=== PATIENT | male | born 1955 | race Caucasian/White ===

== ENCOUNTER 2017-02-13 18:36 | Inpatient (IN) | payer OTHER, MEDICARE ==
[~2017-02-13] VITALS: Ht 177.8 cm; Wt 89.9 kg
[2017-02-13] VITALS (7 sets, daily range): BP systolic 173–221; BP diastolic 97–158; PULSE 92–107; RESP 16–22; TEMP 97.9–98.6; O2SAT 93–100
[~2017-02-13 18:36] MED LIST: CYAN1000P IM; LEVO75TA42 PO; OXYC-360 PO; PRED10 PO; SPIRCAP INH; TEST-25 IM; VITA100T15 PO
[2017-02-13] MEDS ORDERED: LEVO75TA3 PO (19:07)
[2017-02-13] MEDS ORDERED: CARV3.12 PO (19:07)
[2017-02-13] MEDS ORDERED: MYCO500T PO (19:07)
[2017-02-13] MEDS ORDERED: LOVA20TA PO (19:07)
[2017-02-13] MEDS ORDERED: MAGN200T9 (19:07)
[2017-02-13] MEDS ORDERED: SODIUM CHLOR 0.9% 1000 ML INJ 1,000 ML IV SCH (19:11)
--- NOTE | 2017-02-13 19:13 | PD ---
HPI Chief Complaint: Abdominal Pain Time Seen by Provider: 19:03 Travel History International Travel<30 days: No Contact w/Intl Traveler<30days: No Traveled to known affect area: No History of Present Illness HPI 61-year-old male with history of bilateral lung transplant 7 years ago, presents emergency department for evaluation of acute onset epigastric pain that began 18 hours ago. It was a mild discomfort initially. It comes and goes in waves. It has developed into a severely sharp stabbing pain. Patient has associated nausea without vomiting. The pain does not radiate anywhere. Patient denies any fever or chills. Bowel movements have been normal. Denies any urinary symptoms. Patient has had no abdominal surgeries. He has no other symptoms to report. PFSH Past Medical History Cancer: No Cardiovascular Problems: No Diabetes: No Glaucoma: No Hepatitis: No Hiatal Hernia: No Hypertension: No Medical other: No Respiratory: Yes (NOT SURE OF CURRENT CAUSE OF LUNG PROBLEMS) Thyroid Disease: Yes Past Surgical History Oral Surgery: Yes (TONSILS) Tonsillectomy: Yes Other Surgery: Yes (BACK SURGERY) Family History Family Myocardial Infarction: Yes (FATHER AT AGE 53) Social History Alcohol Use: No Tobacco Use: No (1999) Substance Use: No Allergies-Medications (Allergen,Severity, Reaction): Coded Allergies: Sulfa (Sulfonamide Antibiotics) (Unverified Allergy, Severe, "JAUNDICE", ) fluticasone (Unverified Allergy, Severe, BLISTERS AND RASH, 09/23/16) fluticasone furoate (Unverified Allergy, Severe, BLISTERS AND RASH, ) salmeterol (Unverified Allergy, Severe, BLISTERS AND RASH, 09/23/16) tetanus toxoid, adsorbed (Unverified Allergy, Severe, SWELLING, 09/23/16) Reported Meds & Prescriptions Reported Meds & Active Scripts Active Reported Folic Acid 0.4 Mg Tab 400 Mcg PO DAILY Prednisone 10 Mg Tab 10 Mg PO DAILY K-Phos Neutral (Potassium Phos/Sodium Phos) [id number] Mg Tab 250 Mg PO BID Papaverine-Phentolamine M 30-1 mg/ml (Papaverine-Phentolamine) 30 Mg-1 Mg/Ml (1 Ml) Giuliana 0.2 Ml Prograf (Tacrolimus) 1 Mg Cap 2.5 Mg PO DAILY Omeprazole 20 Mg Cap 20 Mg DAILY Mycophenolate (Mycophenolate Mofetil) 500 Mg Tab 1,000 Mg PO BID Mag-Oxide (Magnesium Oxide) 200 Mg Magnesium Tablet 400 BID Lovastatin 20 Mg Tab 20 Mg PO DAILY Levothyroxine (Levothyroxine Sodium) 75 Mcg Tab 75 Mcg PO DAILY Carvedilol 3.125 Mg Tab 3.125 Mg PO BID Review of Systems Except as stated in HPI: all other systems reviewed are Neg Physical Exam Narrative GENERAL: Well-nourished male patient, in moderate distress secondary to pain. SKIN: Focused skin assessment warm/dry. HEAD: Atraumatic. Normocephalic. EYES: Pupils equal and round. No scleral icterus. No injection or drainage. ENT: No nasal bleeding or discharge. Mucous membranes pink and moist. NECK: Trachea midline. No JVD. CARDIOVASCULAR: Tachycardic rate and rhythm. No murmur appreciated. RESPIRATORY: No accessory muscle use. Clear to auscultation. Breath sounds equal bilaterally. GASTROINTESTINAL: Abdomen soft, nondistended. Epigastric tenderness with mild guarding. No rebound tenderness. Hepatic and splenic margins not palpable. MUSCULOSKELETAL: No obvious deformities. No clubbing. No cyanosis. No edema. NEUROLOGICAL: Awake and alert. No obvious cranial nerve deficits. Motor grossly within normal limits. Normal speech. PSYCHIATRIC: Appropriate mood and affect; insight and judgment normal. Data Data Last Documented VS Vital Signs Date Time Temp Pulse Resp B/P (MAP) Pulse Ox O2 Delivery O2 Flow Rate FiO2 02/13/17 20:40 96 Nasal Cannula 2.00 02/13/17 20:22 92 16 179/99 (125) 02/13/17 19:56 98.6 Orders Orders Complete Blood Count With Diff (02/13/17 19:11) Comprehensive Metabolic Panel (02/13/17 19:11) Lipase (02/13/17 19:11) Lactic Acid (02/13/17 19:11) Prothrombin Time / Inr (Pt) (02/13/17 19:11) Act Partial Throm Time (Ptt) (02/13/17 19:11) Urinalysis - C+S If Indicated (02/13/17 19:11) Ct Abd/Pel W Iv Contrast(Rout) (02/13/17 19:11) Iv Access Insert/Monitor (02/13/17 19:11) Ecg Monitoring (02/13/17 19:11) Oximetry (02/13/17 19:11) Morphine Inj (Morphine Inj) (02/13/17 19:15) Ondansetron Inj (Zofran Inj) (02/13/17 19:15) Sodium Chlor 0.9% 1000 Ml Inj (Ns 1000 M (02/13/17 19:11) Sodium Chloride 0.9% Flush (Ns Flush) (02/13/17 19:15) Electrocardiogram (02/13/17 19:11) Abdomen, Upright Only (02/13/17 19:11) Morphine Inj (Morphine Inj) (02/13/17 19:30) Hydromorphone Pf Inj (Dilaudid Pf Inj) (02/13/17 20:00) Piperacil-Tazo 4.5 Gm Premix (Zosyn 4.5 (02/13/17 21:15) Iohexol 350 Inj (Omnipaque 350 Inj) (02/13/17 21:10) Labs Laboratory Tests Test 02/13/17 19:20 02/13/17 20:30 White Blood Count 9.9 TH/MM3 Red Blood Count 4.11 MIL/MM3 Hemoglobin 12.9 GM/DL Hematocrit 37.1 % Mean Corpuscular Volume 90.3 FL Mean Corpuscular Hemoglobin 31.3 PG Mean Corpuscular Hemoglobin Concent 34.7 % Red Cell Distribution Width 12.9 % Platelet Count 231 TH/MM3 Mean Platelet Volume 7.9 FL Neutrophils (%) (Auto) 78.8 % Lymphocytes (%) (Auto) 5.7 % Monocytes (%) (Auto) 12.7 % Eosinophils (%) (Auto) 2.5 % Basophils (%) (Auto) 0.3 % Neutrophils # (Auto) 7.8 TH/MM3 Lymphocytes # (Auto) 0.6 TH/MM3 Monocytes # (Auto) 1.3 TH/MM3 Eosinophils # (Auto) 0.2 TH/MM3 Basophils # (Auto) 0.0 TH/MM3 CBC Comment DIFF FINAL Differential Comment Prothrombin Time 9.9 SEC Prothromb Time International Ratio 1.0 RATIO Activated Partial Thromboplast Time 30.1 SEC Blood Urea Nitrogen 9 MG/DL Creatinine 1.03 MG/DL Random Glucose 113 MG/DL Total Protein 6.8 GM/DL Albumin 3.5 GM/DL Calcium Level 8.9 MG/DL Alkaline Phosphatase 68 U/L Aspartate Amino Transf (AST/SGOT) 14 U/L Alanine Aminotransferase (ALT/SGPT) 17 U/L Total Bilirubin 1.3 MG/DL Sodium Level 128 MEQ/L Potassium Level 3.2 MEQ/L Chloride Level 93 MEQ/L Carbon Dioxide Level 25.7 MEQ/L Anion Gap 9 MEQ/L Estimat Glomerular Filtration Rate 73 ML/MIN Lactic Acid Level 1.3 mmol/L Lipase 101 U/L Urine Color YELLOW Urine Turbidity CLEAR Urine pH 7.0 Urine Specific [place] 1.010 Urine Protein TRACE mg/dL Urine Glucose (UA) NEG mg/dL Urine Ketones 40 mg/dL Urine Occult Blood TRACE Urine Nitrite NEG Urine Bilirubin NEG Urine Urobilinogen LESS THAN 2.0 MG/DL Urine Leukocyte Esterase NEG Urine RBC 2 /hpf Urine WBC 1 /hpf Urine Squamous Epithelial Cells <1 /hpf Urine Hyaline Casts 1 /lpf Urine Mucus MOD /lpf Microscopic Urinalysis Comment CULT NOT INDICATED MDM Medical Decision Making Medical Screen Exam Complete: Yes Emergency Medical Condition: Yes Medical Record Reviewed: Yes Differential Diagnosis Cholecystitis versus pancreatitis versus gastritis versus perforation versus PUD versus biliary colic Narrative Course 61-year-old male presents emergency department for evaluation of waxing and waning epigastric abdominal pain, becoming more frequent and severe. Patient appears significantly uncomfortable upon initial exam. He does have epigastric tenderness with guarding. Abdominal upright shows no free air. Patient is treated for pain initially with morphine. I have discussed the patient with my attending physician who is also assessed the patient. Laboratory Tests Test 02/13/17 19:20 02/13/17 20:30 White Blood Count 9.9 TH/MM3 Red Blood Count 4.11 MIL/MM3 Hemoglobin 12.9 GM/DL Hematocrit 37.1 % Mean Corpuscular Volume 90.3 FL Mean Corpuscular Hemoglobin 31.3 PG Mean Corpuscular Hemoglobin Concent 34.7 % Red Cell Distribution Width 12.9 % Platelet Count 231 TH/MM3 Mean Platelet Volume 7.9 FL Neutrophils (%) (Auto) 78.8 % Lymphocytes (%) (Auto) 5.7 % Monocytes (%) (Auto) 12.7 % Eosinophils (%) (Auto) 2.5 % Basophils (%) (Auto) 0.3 % Neutrophils # (Auto) 7.8 TH/MM3 Lymphocytes # (Auto) 0.6 TH/MM3 Monocytes # (Auto) 1.3 TH/MM3 Eosinophils # (Auto) 0.2 TH/MM3 Basophils # (Auto) 0.0 TH/MM3 CBC Comment DIFF FINAL Differential Comment Prothrombin Time 9.9 SEC Prothromb Time International Ratio 1.0 RATIO Activated Partial Thromboplast Time 30.1 SEC Blood Urea Nitrogen 9 MG/DL Creatinine 1.03 MG/DL Random Glucose 113 MG/DL Total Protein 6.8 GM/DL Albumin 3.5 GM/DL Calcium Level 8.9 MG/DL Alkaline Phosphatase 68 U/L Aspartate Amino Transf (AST/SGOT) 14 U/L Alanine Aminotransferase (ALT/SGPT) 17 U/L Total Bilirubin 1.3 MG/DL Sodium Level 128 MEQ/L Potassium Level 3.2 MEQ/L Chloride Level 93 MEQ/L Carbon Dioxide Level 25.7 MEQ/L Anion Gap 9 MEQ/L Estimat Glomerular Filtration Rate 73 ML/MIN Lactic Acid Level 1.3 mmol/L Lipase 101 U/L Urine Color YELLOW Urine Turbidity CLEAR Urine pH 7.0 Urine Specific [place] 1.010 Urine Protein TRACE mg/dL Urine Glucose (UA) NEG mg/dL Urine Ketones 40 mg/dL Urine Occult Blood TRACE Urine Nitrite NEG Urine Bilirubin NEG Urine Urobilinogen LESS THAN 2.0 MG/DL Urine Leukocyte Esterase NEG Urine RBC 2 /hpf Urine WBC 1 /hpf Urine Squamous Epithelial Cells <1 /hpf Urine Hyaline Casts 1 /lpf Urine Mucus MOD /lpf Microscopic Urinalysis Comment CULT NOT INDICATED Last Impressions Abdomen X-Ray 02/13/17 191 Signed Impressions: Service Date/Time: Monday, February 13, 2017 19:36 - CONCLUSION: 1. No acute findings. Surendra Glass MD CT imaging is complete and shows 1. Partially calcified gallstone in gallbladder neck with pericholecystic inflammatory changes most characteristic of cholecystitis. 2. Colonic diverticulosis without diverticulitis. Diagnosis Primary Impression: Cholecystitis Condition: [place] Feb 13, 2017 19:13
[2017-02-13] MEDS ORDERED: SODIUM CHLORIDE 0.9% FLUSH 10 ML FLUSH IV FLUSH PRN ×2 (19:15→21:45)
[2017-02-13] MEDS ORDERED: ONDANSETRON HCL 4 MG/2 ML VIAL IVP ONE (19:15)
[2017-02-13] MEDS ORDERED: MORPHINE SULFATE 4 MG/ML INJ IV PUSH ONE (19:15)
[2017-02-13] MEDS ORDERED: MORPHINE SULFATE 2 MG/ML INJ IV PUSH ONE (19:30)
[2017-02-13] MEDS ORDERED: TACR1 PO (19:42)
[2017-02-13] MEDS ORDERED: FOLI400T PO (19:42)
[2017-02-13] MEDS ORDERED: OMEP20CA2 (19:42)
[2017-02-13] MEDS ORDERED: PRED10 PO (19:42)
[2017-02-13] MEDS ORDERED: [UNRECOGNIZED DRUG - CODE] (19:42)
[2017-02-13] MEDS ORDERED: KPHOS250 PO (19:42)
[2017-02-13 19:52] LABS: PROTHROMBIN TIME - PATIENT 9.9 SEC (9.8-11.6)
--- NOTE | 2017-02-13 19:55 | RADRPT ---
EXAM DATE/TIME: 02/13/2017 19:36 [facility] COMPARISON: No previous studies available for comparison. INDICATIONS : Abdominal pain. MEDICAL HISTORY : None. SURGICAL HISTORY : None. ENCOUNTER: Initial ACUITY: 1 day PAIN SCORE: 8/10 LOCATION: Bilateral Abdomen. FINDINGS: A single erect view of the abdomen demonstrates the lower lungs to be clear. No evidence of free int raperitoneal gas. The visualized bowel loops are unremarkable. CONCLUSION: 1. No acute findings. Surendra Glass MD on February 13, 2017 at 19:53 Board Certified Radiologist. This report was verified electronically.
[2017-02-13 19:56] LABS: ALBUMIN 3.5 GM/DL (3.4-5.0); AST (GOT) 14 U/L (15-37); BICARBONATE 25.7 MEQ/L (21.0-32.0); BLOOD UREA NITROGEN 9 MG/DL (7-18); CALCIUM 8.9 MG/DL (8.5-10.1); CHLORIDE 93 MEQ/L (98-107); CREATININE 1.03 MG/DL (0.60-1.30); GLOMERULAR FILTRATION RATE 73 ML/MIN (>89); GLUCOSE,RANDOM 113 MG/DL (74-106); LIPASE 101 U/L (73-393); SODIUM (NA) 128 MEQ/L (136-145)
[2017-02-13 19:57] LABS: ALT (GPT) 17 U/L (12-78); AUTOMATED NEUTROPHIL # 7.8 TH/MM3 (1.8-7.7); BASOPHIL % 0.3 % (0.0-2.0); EOSINOPHIL # 0.2 TH/MM3 (0-0.4); EOSINOPHIL % 2.5 % (0.0-4.0); HEMATOCRIT 37.1 % (39.0-51.0); HEMOGLOBIN 12.9 GM/DL (13.0-17.0); LYMPH % 5.7 % (9.0-44.0); LYMPHOCYTE # 0.6 TH/MM3 (1.0-4.8); MEAN CELL VOLUME 90.3 FL (80.0-100.0); MEAN CORPUSCULAR HEMOGLOBIN 31.3 PG (27.0-34.0); MEAN CORPUSCULAR HGB CONC 34.7 % (32.0-36.0); MEAN PLATELET VOLUME 7.9 FL (7.0-11.0); MONO % 12.7 % (0.0-8.0); MONOCYTE # 1.3 TH/MM3 (0-0.9); NEUT % 78.8 % (16.0-70.0); PLATELET COUNT 231 TH/MM3 (150-450); RED BLOOD COUNT 4.11 MIL/MM3 (4.50-5.90); RED CELL DISTRIBUTION WIDTH 12.9 % (11.6-17.2); WHITE BLOOD COUNT 9.9 TH/MM3 (4.0-11.0)
[2017-02-13 20:00] LABS: ALKALINE PHOSPHATASE 68 U/L (45-117); TOTAL BILIRUBIN ADULT 1.3 MG/DL (0.2-1.0); TOTAL PROTEIN 6.8 GM/DL (6.4-8.2)
[2017-02-13] MEDS ORDERED: HYDROmorphone HCL PF 2 MG/ML VIAL IV PUSH ONE (20:00)
[2017-02-13 21:08] LABS: BILIRUBIN, URINE NEG (NEG); BLOOD, URINE TRACE (NEG); GLUCOSE,URINE NEG (NEG); HYALINE CAST, URINE 1 /lpf (RARE); KETONE, URINE 40 mg/dL (NEG); MUCUS URINE MOD /lpf (OCC); NITRITE,URINE NEG (NEG); SQUAMOUS EPITHELIAL CELL URINE <1 /hpf (0-5); URINE COLOR YELLOW (YELLW/STRAW); URINE LEUKOCYTE ESTERASE NEG (NEG)
[2017-02-13] MEDS ORDERED: IOHEXOL 350 MG/ML 10 ML VIAL (for RAD DIAG) IVCONTRAST ONE (21:10)
[2017-02-13] MEDS ORDERED: PIPERACIL-TAZO 4.5 GM PREMIX 100 ML IV ONE (21:15)
--- NOTE | 2017-02-13 21:24 | RADRPT ---
EXAM DATE/TIME: 02/13/2017 20:43 [facility] COMPARISON: No previous studies available for comparison. INDICATIONS : Abdominal pain. IV CONTRAST: 100 cc Omnipaque 350 (iohexol) IV ORAL CONTRAST: No oral contrast ingested. RADIATION DOSE: 6.64 CTDIvol (mGy) MEDICAL HISTORY : None SURGICAL HISTORY : None. ENCOUNTER: Initial ACUITY: 1 day PAIN SCALE: 8/10 LOCATION: Bilateral abdomen TECHNIQUE: Volumetric scanning of the abdomen and pelvis was performed. Using automated exposure control and ad justment of the mA and/or kV according to patient size, radiation dose was kept as low as reasonably achievable to obtain optimal diagnostic quality images. DICOM format image data is available electro nically for review and comparison. FINDINGS: There is a partially calcified gallstone at the gallbladder neck and some mild inflammatory changes a round the gallbladder suggesting a cholecystitis. Lung bases are clear except minimal scarring. There is minimal intrahepatic biliary ductal dilatation. Spleen, adrenals and pancreas unremarkable. Small bilateral renal cysts. There is colonic diverticulosis without evidence for diverticulitis. CONCLUSION: 1. Partially calcified gallstone in gallbladder neck with pericholecystic inflammatory changes most c haracteristic of cholecystitis. 2. Colonic diverticulosis without diverticulitis. Surendra Glass MD on February 13, 2017 at 21:18 Board Certified Radiologist. This report was verified electronically.
--- NOTE | 2017-02-13 21:40 | PD ---
Data Data Last Documented VS Vital Signs Date Time Temp Pulse Resp B/P (MAP) Pulse Ox O2 Delivery O2 Flow Rate FiO2 02/13/17 20:40 96 Nasal Cannula 2.00 02/13/17 20:22 92 16 179/99 (125) 02/13/17 19:56 98.6 Orders Orders Complete Blood Count With Diff (02/13/17 19:11) Comprehensive Metabolic Panel (02/13/17 19:11) Lipase (02/13/17 19:11) Lactic Acid (02/13/17 19:11) Prothrombin Time / Inr (Pt) (02/13/17 19:11) Act Partial Throm Time (Ptt) (02/13/17 19:11) Urinalysis - C+S If Indicated (02/13/17 19:11) Ct Abd/Pel W Iv Contrast(Rout) (02/13/17 19:11) Iv Access Insert/Monitor (02/13/17 19:11) Ecg Monitoring (02/13/17 19:11) Oximetry (02/13/17 19:11) Morphine Inj (Morphine Inj) (02/13/17 19:15) Ondansetron Inj (Zofran Inj) (02/13/17 19:15) Sodium Chlor 0.9% 1000 Ml Inj (Ns 1000 M (02/13/17 19:11) Sodium Chloride 0.9% Flush (Ns Flush) (02/13/17 19:15) Electrocardiogram (02/13/17 19:11) Abdomen, Upright Only (02/13/17 19:11) Morphine Inj (Morphine Inj) (02/13/17 19:30) Hydromorphone Pf Inj (Dilaudid Pf Inj) (02/13/17 20:00) Piperacil-Tazo 4.5 Gm Premix (Zosyn 4.5 (02/13/17 21:15) Iohexol 350 Inj (Omnipaque 350 Inj) (02/13/17 21:10) Admit Order (Ed Use Only) (02/13/17 ) Card Dealer / Telemetry FARSHAD.Q8H (02/13/17 21:39) Activity Bed Rest (02/13/17 21:39) Potassium Chloride (Kcl) (02/13/17 21:45) Piperacil-Tazo 4.5 Gm Premix (Zosyn 4.5 (02/14/17 03:00) Admit To Inpatient (02/13/17 ) Vital Signs (Adult) Q4H (02/13/17 21:36) Activity Oob Ad Jennifer (02/13/17 21:36) Intake + Output FARSHAD.QSHIFT (02/13/17 21:36) Diet Clear Liquid (02/14/17 Breakfast) Sodium Chlor 0.9% 1000 Ml Inj (Ns 1000 M (02/13/17 21:36) Sodium Chloride 0.9% Flush (Ns Flush) (02/13/17 21:45) Sodium Chloride 0.9% Flush (Ns Flush) (02/14/17 09:00) Ondansetron Inj (Zofran Inj) (02/13/17 21:45) Comprehensive Metabolic Panel (02/14/17 06:00) Complete Blood Count With Diff (02/14/17 06:00) Scd Bilateral/Knee High FARSHAD.BID (02/13/17 21:36) Robert Bilateral/Knee High FARSHAD.QSHIFT (02/13/17 21:40) Acetaminophen (Tylenol) (02/13/17 21:45) Acetamin-Hydrocod 325-5 Mg ([place] 5-325 (02/13/17 21:45) Docusate Sodium-Senna (Marylin-Colace) (02/14/17 09:00) Magnesium Hydroxide Liq (Milk Of Magnesi (02/13/17 21:45) Sennosides (Senokot) (02/13/17 21:45) Bisacodyl Supp (Dulcolax Supp) (02/13/17 21:45) Lactulose Liq (Lactulose Liq) (02/13/17 21:45) Morphine Inj (Morphine Inj) (02/13/17 21:45) Inpatient Certification (02/13/17 ) Consult General Surgery (02/13/17 ) Labs Laboratory Tests Test 02/13/17 19:20 02/13/17 20:30 White Blood Count 9.9 TH/MM3 Red Blood Count 4.11 MIL/MM3 Hemoglobin 12.9 GM/DL Hematocrit 37.1 % Mean Corpuscular Volume 90.3 FL Mean Corpuscular Hemoglobin 31.3 PG Mean Corpuscular Hemoglobin Concent 34.7 % Red Cell Distribution Width 12.9 % Platelet Count 231 TH/MM3 Mean Platelet Volume 7.9 FL Neutrophils (%) (Auto) 78.8 % Lymphocytes (%) (Auto) 5.7 % Monocytes (%) (Auto) 12.7 % Eosinophils (%) (Auto) 2.5 % Basophils (%) (Auto) 0.3 % Neutrophils # (Auto) 7.8 TH/MM3 Lymphocytes # (Auto) 0.6 TH/MM3 Monocytes # (Auto) 1.3 TH/MM3 Eosinophils # (Auto) 0.2 TH/MM3 Basophils # (Auto) 0.0 TH/MM3 CBC Comment DIFF FINAL Differential Comment Prothrombin Time 9.9 SEC Prothromb Time International Ratio 1.0 RATIO Activated Partial Thromboplast Time 30.1 SEC Blood Urea Nitrogen 9 MG/DL Creatinine 1.03 MG/DL Random Glucose 113 MG/DL Total Protein 6.8 GM/DL Albumin 3.5 GM/DL Calcium Level 8.9 MG/DL Alkaline Phosphatase 68 U/L Aspartate Amino Transf (AST/SGOT) 14 U/L Alanine Aminotransferase (ALT/SGPT) 17 U/L Total Bilirubin 1.3 MG/DL Sodium Level 128 MEQ/L Potassium Level 3.2 MEQ/L Chloride Level 93 MEQ/L Carbon Dioxide Level 25.7 MEQ/L Anion Gap 9 MEQ/L Estimat Glomerular Filtration Rate 73 ML/MIN Lactic Acid Level 1.3 mmol/L Lipase 101 U/L Urine Color YELLOW Urine Turbidity CLEAR Urine pH 7.0 Urine Specific [place] 1.010 Urine Protein TRACE mg/dL Urine Glucose (UA) NEG mg/dL Urine Ketones 40 mg/dL Urine Occult Blood TRACE Urine Nitrite NEG Urine Bilirubin NEG Urine Urobilinogen LESS THAN 2.0 MG/DL Urine Leukocyte Esterase NEG Urine RBC 2 /hpf Urine WBC 1 /hpf Urine Squamous Epithelial Cells <1 /hpf Urine Hyaline Casts 1 /lpf Urine Mucus MOD /lpf Microscopic Urinalysis Comment CULT NOT INDICATED MDM Medical Record Reviewed: Yes Supervised Visit with SERGE: Yes Narrative Course please refer to midlevel note pt with cholecystitis zosyn started pain controlled with 1mg hydromorphone admission for IV abx and IVF pt admitted to [facility] service, per hospital protocol d/w dr potts Diagnosis Primary Impression: Cholecystitis Additional Impressions: Hypokalemia Hyponatremia Lung transplant recipient HTN (hypertension) Admitting Information Admitting Physician Requests: Admit Valerio Panda MD Feb 13, 2017 21:40
--- NOTE | 2017-02-13 21:41 | HHI.HP ---
[facility] Physician Beck Bradley DO Admission Diagnosis Cholecystitis Diagnoses: (1) Cholecystitis Diagnosis: Principal (2) HTN (hypertension) Diagnosis: Principal (3) Hypokalemia Diagnosis: Principal (4) Hyponatremia Diagnosis: Principal (5) Lung transplant recipient Diagnosis: Principal Travel History International Travel<30 Days: No Contact w/Intl Traveler <30 Da: No Traveled to Known Affected Are: No History of Present Illness This is a 61-year-old male with a PMH of HTN, Hyperlipidemia, Lung Transplant and Hypothyroidism who presented to the ER with complaints of epigastric pain starting earlier today. States the pain is intermittent, sharp and severe 10/ 10. Non-radiating. No alleviating or exacerbating factors. Denies associated nausea or vomiting. No fever, chills or sick contacts. On arrival, BP 221/158 , HR 105, O2 sat 98% on RA, Afebrile. CBC essentially unremarkable. K+ 3.2. GFR 73. Lactic Acid 1.3. INR 1.0. UA negative. Abd X-ray w/ no acute findings. CT Abd/Pelvis w/ partially calcified gallstone in gallbladder neck with pericholecystic inflammatory changes characteristic of cholecystitis. S/p Morphine and Zosyn in ER. Review of Systems Except as stated in HPI: all other systems reviewed are Neg ROS: 14 point review of systems otherwise negative. Past Family Social History Past Medical History PMH: HTN, Hyperlipidemia, Lung Transplant and Hypothyroidism Past Surgical History PAST SURGICAL HISTORY: Tonsillectomy, Back Surgery Allergies: Coded Allergies: Sulfa (Sulfonamide Antibiotics) (Unverified Allergy, Severe, "JAUNDICE", ) fluticasone (Unverified Allergy, Severe, BLISTERS AND RASH, 09/23/16) fluticasone furoate (Unverified Allergy, Severe, BLISTERS AND RASH, ) salmeterol (Unverified Allergy, Severe, BLISTERS AND RASH, 09/23/16) tetanus toxoid, adsorbed (Unverified Allergy, Severe, SWELLING, 09/23/16) Family History PAST FAMILY HISTORY: Reviewed, positive for CAD. Social History PAST SOCIAL HISTORY: Negative for alcohol, tobacco or drugs. Physical Exam Vital Signs Vital Signs Date Time Temp Pulse Resp B/P (MAP) Pulse Ox O2 Delivery O2 Flow Rate FiO2 02/13/17 20:40 96 Nasal Cannula 2.00 02/13/17 20:22 92 16 179/99 (125) 95 Room Air 02/13/17 20:13 93 17 173/108 (129) 96 Room Air 02/13/17 20:06 94 18 191/97 (128) 98 Room Air 02/13/17 19:56 98.6 92 22 204/103 (136) 100 Room Air 02/13/17 18:37 97.9 105 22 221/158 (179) 98 Room Air Physical Exam PE: GENERAL: Middle-aged male in no acute distress. HEENT: PERRLA, EOMI. No scleral icterus or conjunctival pallor. No lid lag or facial droop. CARDIOVASCULAR: Regular rate and rhythm. No obvious murmurs to auscultation. No chest tenderness to palpation. RESPIRATORY: No obvious rhonchi or wheezing. Clear to auscultation. Breath sounds equal bilaterally. GASTROINTESTINAL: Abdomen soft, epigastric tenderness to palpation, nondistended. BS normal. MUSCULOSKELETAL: Extremities without clubbing, cyanosis, or edema. No obvious deformities. NEUROLOGICAL: Awake, alert and oriented x4. No focal neurologic deficits. Moving both upper and lower extremities spontaneously. Laboratory Laboratory Tests Test 02/13/17 19:20 02/13/17 20:30 White Blood Count 9.9 Red Blood Count 4.11 Hemoglobin 12.9 Hematocrit 37.1 Mean Corpuscular Volume 90.3 Mean Corpuscular Hemoglobin 31.3 Mean Corpuscular Hemoglobin Concent 34.7 Red Cell Distribution Width 12.9 Platelet Count 231 Mean Platelet Volume 7.9 Neutrophils (%) (Auto) 78.8 Lymphocytes (%) (Auto) 5.7 Monocytes (%) (Auto) 12.7 Eosinophils (%) (Auto) 2.5 Basophils (%) (Auto) 0.3 Neutrophils # (Auto) 7.8 Lymphocytes # (Auto) 0.6 Monocytes # (Auto) 1.3 Eosinophils # (Auto) 0.2 Basophils # (Auto) 0.0 CBC Comment DIFF FINAL Differential Comment Prothrombin Time 9.9 Prothromb Time International Ratio 1.0 Activated Partial Thromboplast Time 30.1 Blood Urea Nitrogen 9 Creatinine 1.03 Random Glucose 113 Total Protein 6.8 Albumin 3.5 Calcium Level 8.9 Alkaline Phosphatase 68 Aspartate Amino Transf (AST/SGOT) 14 Alanine Aminotransferase (ALT/SGPT) 17 Total Bilirubin 1.3 Sodium Level 128 Potassium Level 3.2 Chloride Level 93 Carbon Dioxide Level 25.7 Anion Gap 9 Estimat Glomerular Filtration Rate 73 Lactic Acid Level 1.3 Lipase 101 Urine Color YELLOW Urine Turbidity CLEAR Urine pH 7.0 Urine Specific [place] 1.010 Urine Protein TRACE Urine Glucose (UA) NEG Urine Ketones 40 Urine Occult Blood TRACE Urine Nitrite NEG Urine Bilirubin NEG Urine Urobilinogen LESS THAN 2.0 Urine Leukocyte Esterase NEG Urine RBC 2 Urine WBC 1 Urine Squamous Epithelial Cells <1 Urine Hyaline Casts 1 Urine Mucus MOD Microscopic Urinalysis Comment CULT NOT INDICATED Result Diagram: 02/13/17191902/13/171919 Caprini VTE Risk Assessment Caprini VTE Risk Assessment: No/Low Risk (score <= 1) Caprini Risk Assessment Model Point Value = 1 Point Value = 2 Point Value = 3 Point Value = 5 Age 41-60 Minor surgery BMI > 25 kg/m2 Swollen legs Varicose veins or History of unexplained or recurrent spontaneous Oral contraceptives or hormone replacement Sepsis (< 1 month) Serious lung disease, including pneumonia (< 1 month) Abnormal pulmonary function Acute myocardial infarction Congestive heart failure (< 1 month) History of inflammatory bowel disease Medical patient at bed rest Age 61-74 Arthroscopic surgery Major open surgery (> 45 min) Laparoscopic surgery (> 45 min) Malignancy Confined to bed (> 72 hours) Immobilizing plaster cast Central venous access Age >= 75 History of VTE Family history of VTE Factor V Leiden Prothrombin [id number] Lupus anticoagulant Anticardiolipin antibodies Elevated serum homocysteine Heparin-induced thrombocytopenia Other congenital or acquired thrombophilia Stroke (< 1 month) Elective arthroplasty Hip, pelvis, or leg fracture Acute spinal cord injury (< 1 month) Prophylaxis Regimen Total Risk Factor Score Risk Level Prophylaxis Regimen 0-1 Low Early ambulation 2 Moderate Order ONE of the following: *Sequential Compression Device (SCD) *Heparin 5000 units SQ BID 3-4 Higher Order ONE of the following medications: *Heparin 5000 units SQ TID *Enoxaparin/Lovenox 40 mg SQ daily (WT < 150 kg, CrCl > 30 mL/min) *Enoxaparin/Lovenox 30 mg SQ daily (WT < 150 kg, CrCl > 10-29 mL/min) *Enoxaparin/Lovenox 30 mg SQ BID (WT < 150 kg, CrCl > 30 mL/min) AND/OR *Sequential Compression Device (SCD) 5 or more Highest Order ONE of the following medications: *Heparin 5000 units SQ TID (Preferred with Epidurals) *Enoxaparin/Lovenox 40 mg SQ daily (WT < 150 kg, CrCl > 30 mL/min) *Enoxaparin/Lovenox 30 mg SQ daily (WT < 150 kg, CrCl > 10-29 mL/min) *Enoxaparin/Lovenox 30 mg SQ BID (WT < 150 kg, CrCl > 30 mL/min) AND *Sequential Compression Device (SCD) Assessment and Plan Problem List: (1) Cholecystitis ICD Code: K81.9 - Cholecystitis, unspecified Status: Acute (2) HTN (hypertension) ICD Code: I10 - Essential (primary) hypertension (3) Hypokalemia ICD Code: E87.6 - Hypokalemia (4) Hyponatremia ICD Code: E87.1 - Hypo-osmolality and hyponatremia (5) Lung transplant recipient ICD Code: Z94.2 - Lung transplant status Assessment and Plan A/P: 1. Cholecystitis: acute onset of severe epigastric pain, LFTs normal. CT Abd/ Pelvis w/ partially calcified gallstone in gallbladder neck with pericholecystic inflammation characteristic of cholecystitis, images reviewed by me. S/p Zeinasyn in ER, will continue w/ IV Abx. Analgesics/antiemetics as needed. Clear liquid diet. IVF for hydration. Consult Gen Sx for evaluation and likely surgical intervention. 2. HTN: Uncontrolled. Likely compounded by pain complaints. BP 221/158, HR 105 on arrival, optimize pain control, start antihypertensives if BP remains > 180. Monitor BP 3. Hypokalemia: K+ 3.2. Will replace and recheck labs in am. 4. Hyponatremia: Na 128, IVF for hydration, repeat labs. 5. Lung Transplant: h/o bilateral lung transplant 7yrs ago, resume home Prednisone, CellCept and Prograf 6. DVT Prophylaxis: SCD/Teds. 7. Social work for d/c planning as needed. 8. Records/labs/imaging reviewed by me, case discussed at length w/ ER physician. Physician Certification 2 Midnight Certification Type: Admission for Inpatient Services Order for Inpatient Services The services are ordered in accordance with Medicare regulations or non- Medicare payer requirements, as applicable. In the case of services not specified as inpatient-only, they are appropriately provided as inpatient services in accordance with the 2-midnight benchmark. Estimated LOS (days): 2 days is the estimated time the patient will need to remain in the hospital, assuming treatment plan goals are met and no additional complications. Post-Hospital Plan: Not yet determined Marisela Quezada MD Feb 13, 2017 21:40
[2017-02-13] MEDS ORDERED: LACTULOSE SYRUP 20 GM/30 ML CUP PO PRN (21:45)
[2017-02-13] MEDS ORDERED: ACETAMINOPHEN 325 MG TAB PO PRN (21:45)
[2017-02-13] MEDS ORDERED: SENNOSIDES 8.6 MG TAB PO PRN (21:45)
[2017-02-13] MEDS ORDERED: POTASSIUM CHLORIDE 20 MEQ CONTROLLED RELEASE TAB PO ONE (21:45)
[2017-02-13] MEDS ORDERED: MAGNESIUM HYDROXIDE SUSP 30 ML CUP PO PRN (21:45)
[2017-02-13] MEDS ORDERED: BISACODYL 10 MG SUPP RECTAL PRN (21:45)
[2017-02-13] MEDS: SODIUM CHLOR 0.9% 1000 ML INJ 1,000 ML IV SCH (21:52)
[2017-02-13] MEDS: MORPHINE SULFATE 2 MG/ML INJ IV PUSH PRN (22:47)
[2017-02-13] MEDS: ACETAMINOPHEN/HYDROcodone 325 MG/5 MG TAB PO PRN (23:59)
[2017-02-14] MEDS: PIPERACIL-TAZO 4.5 GM PREMIX 100 ML IV SCH ×4 (02:20→20:34)
[2017-02-14] MEDS: MORPHINE SULFATE 2 MG/ML INJ IV PUSH PRN ×2 (02:20→05:57)
[2017-02-14 04:00] VITALS: BP 166/90; PULSE 93; RESP 20; TEMP 99.8; O2SAT 97
[2017-02-14] MEDS: LEVOTHYROXINE SODIUM 75 MCG TAB PO SCH (05:57)
[2017-02-14] MEDS: SODIUM CHLOR 0.9% 1000 ML INJ 1,000 ML IV SCH ×3 (05:57→20:36)
[2017-02-14] MEDS: ACETAMINOPHEN/HYDROcodone 325 MG/5 MG TAB PO PRN (06:42)
[2017-02-14 08:00] VITALS: BP 127/78; PULSE 100; PULSE 104; RESP 21; TEMP 98.6; O2SAT 92
[2017-02-14] MEDS: MYCOPHENOLATE MOFETIL 500 MG TAB PO SCH ×2 (08:06→20:34)
[2017-02-14] MEDS: CARVEDILOL 3.125 MG TAB PO SCH ×2 (08:07→20:34)
[2017-02-14] MEDS: SODIUM CHLORIDE 0.9% FLUSH 10 ML FLUSH IV FLUSH SCH ×2 (08:07→20:33)
[2017-02-14] MEDS: DOCUSATE SODIUM 50 MG/SENNA 8.6 MG TAB PO SCH ×2 (08:07→20:34)
[2017-02-14] MEDS: predniSONE 10 MG TAB PO SCH (08:07)
[2017-02-14] MEDS: FOLIC ACID 1 MG TAB PO SCH (08:07)
[2017-02-14] MEDS: PANTOPRAZOLE SOD 20 MG DELAYED RELEASE TAB PO SCH (08:07)
[2017-02-14] MEDS ORDERED: TACROLIMUS 0.5 MG CAP PO SCH (09:00)
[2017-02-14 09:08] LABS: AUTOMATED NEUTROPHIL # 8.9 TH/MM3 (1.8-7.7); BASOPHIL % 0.3 % (0.0-2.0); EOSINOPHIL # 0.1 TH/MM3 (0-0.4); EOSINOPHIL % 1.3 % (0.0-4.0); HEMATOCRIT 34.3 % (39.0-51.0); HEMOGLOBIN 12.1 GM/DL (13.0-17.0); LYMPH % 2.9 % (9.0-44.0); LYMPHOCYTE # 0.3 TH/MM3 (1.0-4.8); MEAN CELL VOLUME 90.4 FL (80.0-100.0); MEAN CORPUSCULAR HEMOGLOBIN 31.8 PG (27.0-34.0); MEAN CORPUSCULAR HGB CONC 35.2 % (32.0-36.0); MEAN PLATELET VOLUME 7.8 FL (7.0-11.0); MONO % 10.5 % (0.0-8.0); MONOCYTE # 1.1 TH/MM3 (0-0.9); PLATELET COUNT 187 TH/MM3 (150-450); RED CELL DISTRIBUTION WIDTH 12.7 % (11.6-17.2); WHITE BLOOD COUNT 10.4 TH/MM3 (4.0-11.0)
[2017-02-14 09:46] LABS: ALBUMIN 2.9 GM/DL (3.4-5.0); ALKALINE PHOSPHATASE 65 U/L (45-117); ALT (GPT) 18 U/L (12-78); AST (GOT) 18 U/L (15-37); BICARBONATE 22.7 MEQ/L (21.0-32.0); BLOOD UREA NITROGEN 9 MG/DL (7-18); CALCIUM 8.2 MG/DL (8.5-10.1); CHLORIDE 100 MEQ/L (98-107); CREATININE 0.96 MG/DL (0.60-1.30); GLOMERULAR FILTRATION RATE 79 ML/MIN (>89); GLUCOSE,RANDOM 100 MG/DL (74-106); SODIUM (NA) 132 MEQ/L (136-145); TOTAL BILIRUBIN ADULT 1.7 MG/DL (0.2-1.0); TOTAL PROTEIN 5.9 GM/DL (6.4-8.2)
--- NOTE | 2017-02-14 10:11 | HHI.PR ---
Subjective Remarks f/u for cholecystitis per patient morphine is not helping pain and that dilaudid helped him better. + nauseated. no emesis. + RUQ pain. No other complaints. Objective Vitals Vital Signs Date Time Temp Pulse Resp B/P (MAP) Pulse Ox O2 Delivery O2 Flow Rate FiO2 02/14/17 08:00 98.6 104 21 127/78 (94) 92 02/14/17 07:42 18 02/14/17 06:02 20 02/14/17 04:00 99.8 93 20 166/90 (115) 97 02/13/17 23:20 97 02/13/17 23:00 98.3 107 22 189/104 (132) 93 02/13/17 20:40 96 Nasal Cannula 2.00 02/13/17 20:22 92 16 179/99 (125) 95 Room Air 02/13/17 20:13 93 17 173/108 (129) 96 Room Air 02/13/17 20:06 94 18 191/97 (128) 98 Room Air 02/13/17 19:56 98.6 92 22 204/103 (136) 100 Room Air 02/13/17 18:37 97.9 105 22 221/158 (179) 98 Room Air I/O 02/13/17 02/13/17 02/13/17 02/14/17 02/14/17 02/14/17 07:00 15:00 23:00 07:00 15:00 23:00 Intake Total 944 ml Output Total 500 ml Balance 444 ml Intake Oral 240 ml IV Total 704 ml Output Urine Total 500 ml Result Diagram: 02/14/17 0741 02/14/17 0741 Objective Remarks GENERAL: in NAD CARDIOVASCULAR: Regular rate and rhythm without murmurs, gallops, or rubs. RESPIRATORY: Breath sounds equal bilaterally. No accessory muscle use. GASTROINTESTINAL: Abdomen soft and nondistended. + TTP in RUQ. Medications and IVs Current Medications Morphine Sulfate (Morphine Inj) 2 mg ONCE ONCE IV PUSH ; Start 02/13/17 at 19:15 ; Stop 02/13/17 at 19:23; Status DC Ondansetron HCl (Zofran Inj) 4 mg ONCE ONCE IVP Last administered on 02/13/17at 19:34; Start 02/13/17 at 19:15; Stop 02/13/17 at 19:16; Status DC Sodium Chloride 1,000 ml @ 1,000 mls/hr Q1H IV Last administered on 02/13/17at 19:34; Start 02/13/17 at 19:11; Stop 02/13/17 at 20:10; Status DC Sodium Chloride (NS Flush) 2 ml UNSCH PRN IV FLUSH FLUSH AFTER USING IV ACCESS ; Start 02/13/17 at 19:15; Stop 02/13/17 at 21:46; Status DC Morphine Sulfate (Morphine Inj) 2 mg ONCE ONCE IV PUSH Last administered on 02/13/17at 19:35; Start 02/13/17 at 19:30; Stop 02/13/17 at 19:31; Status DC Hydromorphone HCl (Dilaudid Pf Inj) 1 mg ONCE ONCE IV PUSH Last administered on 02/13/17at 20:06; Start 02/13/17 at 20:00; Stop 02/13/17 at 20:01; Status DC Piperacillin Sod/ Tazobactam Sod 100 ml @ 200 mls/hr ONCE ONCE IV Last administered on 02/13/17at 21:51; Start 02/13/17 at 21:15; Stop 02/13/17 at 21:44; Status DC Iohexol (Omnipaque 350 Inj) 97 ml STK-MED ONCE IVCONTRAST Last administered on 02/13/17at 21:10; Start 02/13/17 at 21:10; Stop 02/13/17 at 21:11; Status DC Potassium Chloride (KCl) 40 meq ONCE ONCE PO Last administered on 02/13/17at 21: 52; Start 02/13/17 at 21:45; Stop 02/13/17 at 21:48; Status DC Piperacillin Sod/ Tazobactam Sod 100 ml @ 200 mls/hr Q6H IV Last administered on 02/14/17at 08:10; Start 02/14/17 at 03:00 Sodium Chloride 1,000 ml @ 100 mls/hr Q10H IV Last administered on 02/14/17at 05 :57; Start 02/13/17 at 21:36 Sodium Chloride (NS Flush) 2 ml UNSCH PRN IV FLUSH FLUSH AFTER USING IV ACCESS ; Start 02/13/17 at 21:45 Sodium Chloride (NS Flush) 2 ml BID IV FLUSH Last administered on 02/14/17at 08: 07; Start 02/14/17 at 09:00 Ondansetron HCl (Zofran Inj) 4 mg Q6H PRN IVP NAUSEA OR VOMITING; Start at 21:45 Acetaminophen (Tylenol) 650 mg Q6H PRN PO FEVER/PAIN SCALE 1 TO 2; Start at 21:45 Acetaminophen/ Hydrocodone Bitart ([place] 5-325 Mg) 1 tab Q4H PRN PO PAIN SCALE 3 TO 5 Last administered on 02/14/17at 06:42; Start 02/13/17 at 21:45 Senna/Docusate Sodium ([place]-Colace) 1 tab BID PO Last administered on 02/14/17at 08:07; Start 02/14/17 at 09:00 Magnesium Hydroxide (Milk Of Magnesia Liq) 30 ml Q12H PRN PO Mild constipation ; Start 02/13/17 at 21:45 Sennosides (Senokot) 17.2 mg Q12H PRN PO Moderate constipation; Start 02/13/17 at 21:45 Bisacodyl (Dulcolax Supp) 10 mg DAILY PRN RECTAL SEVERE CONSITIPATION; Start at 21:45 Lactulose (Lactulose Liq) 30 ml DAILY PRN PO SEVERE CONSITIPATION; Start at 21:45 Morphine Sulfate (Morphine Inj) 2 mg Q4H PRN IV PUSH PAIN 6-10 Last administered on 02/14/17at 05:57; Start 02/13/17 at 21:45; Stop 02/14/17 at 10:06; Status DC Pneumococcal Polyvalent Vaccine (Pneumovax-23 Inj) 25 mcg ONCE ONCE IM ; Start 02/15/17 at 10:00; Stop 02/15/17 at 10:01 Influenza Virus Vaccine (Flu (Quadrivalent) Vaccine Inj) 0.5 ml ONCE ONCE IM ; Start 02/15/17 at 10:00; Stop 02/15/17 at 10:01 Carvedilol (Coreg) 3.125 mg BID PO Last administered on 02/14/17at 08:07; Start 02/14/17 at 09:00 Folic Acid (Folate) 0.4 mg DAILY PO Last administered on 02/14/17at 08:07; Start 02/14/17 at 09:00 Levothyroxine Sodium (Synthroid) 75 mcg DAILY@0600 PO Last administered on at 05:57; Start 02/14/17 at 06:00 Mycophenolate Mofetil (Cellcept) 1,000 mg BID PO Last administered on 02/14/17at 08:06; Start 02/14/17 at 09:00 Prednisone (Deltasone) 10 mg DAILY PO Last administered on 02/14/17at 08:07; Start 02/14/17 at 09:00 Tacrolimus (Prograf) 2.5 mg DAILY PO Last administered on 02/14/17at 08:23; Start 02/14/17 at 09:00 Pantoprazole Sodium (Protonix) 20 mg DAILY PO Last administered on 02/14/17at 08: 07; Start 02/14/17 at 09:00 Hydromorphone HCl (Dilaudid Pf Inj) 1 mg Q4H PRN IV PUSH pain 6-10; Start at 10:15; Status UNV A/P Problem List: (1) Cholecystitis ICD Code: K81.9 - Cholecystitis, unspecified Status: Acute (2) HTN (hypertension) ICD Code: I10 - Essential (primary) hypertension (3) Hypokalemia ICD Code: E87.6 - Hypokalemia (4) Hyponatremia ICD Code: E87.1 - Hypo-osmolality and hyponatremia (5) Lung transplant recipient ICD Code: Z94.2 - Lung transplant status Assessment and Plan 61 y/o M who p/w abdominal pain Cholecystitis: acute onset of severe epigastric pain, LFTs normal. CT Abd/ Pelvis w/ partially calcified gallstone in gallbladder neck with pericholecystic inflammation characteristic of cholecystitis. -S/p Zosyn in ER, will continue w/ IV Abx. -patient schedule for surgery Thursday. -morphine not improving pain so will give dilaudid since it worked for him. elevated BP -secondary to pain. improved with pain medication. Hypokalemia: -replenish as needed. Hyponatremia: - Na 128, IVF for hydration. now 132. Lung Transplant: - h/o bilateral lung transplant 7yrs ago, resume home Prednisone, CellCept and Prograf DVT Prophylaxis: SCD/Teds. Discharge Planning patient scheduled for surgery Jannet Bhatt MD Feb 14, 2017 10:11
[2017-02-14] MEDS: HYDROmorphone HCL PF 2 MG/ML VIAL IV PUSH PRN ×3 (10:32→20:37)
[2017-02-14 12:00] VITALS: BP 155/89; PULSE 94; PULSE 96; RESP 17; TEMP 98.4; O2SAT 95
--- NOTE | 2017-02-14 13:12 | EKG ---
Date Performed: 02/13/2017 Time Performed: 19:51:42 PTAGE: 61 years EKG: Sinus rhythm RIGHT BUNDLE BRANCH BLOCK LEFT ANTERIOR FASCICULAR BLOCK ABNORMAL ECG PREVIOUS TRACING 05/27/08 Since previous tracing, right bundle branch block is now a complete b undle. [place] remains leftward. DOCTOR: Nakul Camacho Interpretating Date/Time 02/14/2017 13:11:07
[2017-02-14 16:00] VITALS: BP 151/84; PULSE 88; PULSE 94; RESP 21; TEMP 98.6; O2SAT 95
--- NOTE | 2017-02-14 16:45 | RADRPT ---
EXAM DATE/TIME: 02/14/2017 15:14 [place] COMPARISON: No previous studies available for comparison. INDICATIONS : Chest pain. MEDICAL HISTORY : Pulmonary fibrosis. SURGICAL HISTORY : Tonsillectomy. Double lung transplant. ENCOUNTER: Initial ACUITY: 1 day PAIN SCORE: 5/10 LOCATION: Bilateral chest FINDINGS: The cardiac silhouette is normal in transverse diameter. The aortic knob is prominent with tortuosity of the descending thoracic aorta. The lungs are free of acute parenchymal opacity. No effusions are identified. Old right rib fractures are present. There is mild multilevel degenerative change throug hout the spine. CONCLUSION: 1. No acute cardiopulmonary disease. Kadeem Gaxiola MD on February 14, 2017 at 16:42 Board Certified Radiologist. This report was verified electronically.
--- NOTE | 2017-02-14 17:01 | MB ---
cc: MARIE PINEDA DATE OF CONSULTATION: 02/14/17 REASON FOR CONSULTATION Cholelithiasis, cholecystitis, right upper quadrant pain. HISTORY OF PRESENT ILLNESS This is a pleasant gentleman who has had problems with symptomatic cholelithiasis most recently about three weeks ago when he was up [place]. He thought he had food poisoning. He subsequently got better and then came to [facility] where he had another attack of right upper quadrant pain, nausea and vomiting and epigastric pain. He came to the emergency room and was found to have symptoms consistent with biliary colic and imaging showed a slightly dilated inflamed gallbladder. Subsequently, he has been on antibiotics, felt better and better enough to eat breakfast this morning. Surgery was consulted for consideration of timing of cholecystectomy. REVIEW OF SYSTEMS He has no neurologic events. No endocrine events. He has previous lung transplant requiring immunosuppression for his lung transplant 7 years ago. GI: Complaints as above. No cardiac problems. He had his lung transplant for pulmonary fibrosis. Also has no other neurologic or urinary problems. PAST MEDICAL HISTORY 1. Pulmonary fibrosis requiring a lung transplant. 2. Hypertension. 3. Hyperlipidemia. 4. Hypothyroidism. PAST SURGICAL HISTORY 1. Tonsillectomy. 2. Some back surgery. 3. Bilateral lung transplant. ALLERGIES ALLERGIES ARE INCLUDED IN THE CHART AND WILL NOT BE REPEATED. PHYSICAL EXAMINATION GENERAL: He is healthy-appearing gentleman, sitting in the bed. He is able to move about without difficulty. NECK: Supple. CHEST: He has got scars on the back of his chest from his lung transplant. It is fairly clear. HEART: Heart is regular rate. ABDOMEN: Thin, soft with mild soreness in the right upper quadrant. No surgical scars. EXTREMITIES: Moves all extremities well without clubbing, cyanosis or edema. NEUROLOGIC: He is alert and oriented without focal deficits. Cranial nerves II through XII grossly intact. LABORATORY DATA He had a sodium of 132, otherwise normal. LFTs fairly normal. His total bilirubin was 1.3, this morning it is 1.7. White count was 9, H&H 12 and 37. Coags are normal. Urinalysis clear. IMAGING STUDIES CT of the abdomen shows a thickened gallbladder with a gallstone with some diverticular disease. Abdominal x-ray: No acute findings. Chest x-ray pending. ASSESSMENT A gentleman who is status post lung transplant with symptomatic cholelithiasis, cholecystitis. PLAN AT THIS TIME He has just eaten a diet. We will keep him on antibiotics and OR is giving time for Thursday morning. The surgery was discussed in detail with the patient. He appeared to understand and wished to proceed. Marie Pineda MD JDB/BJF /2:13 PM /4:21 PM
[2017-02-14 20:00] VITALS: PULSE 98
[2017-02-14 20:29] VITALS: BP 138/78; PULSE 95; RESP 16; TEMP 98.6; O2SAT 94
[2017-02-14] MEDS: ONDANSETRON HCL 4 MG/2 ML VIAL IVP PRN (20:46)
[2017-02-14] MEDS ORDERED: TACROLIMUS 5 MG CAP PO ONE (21:45)
[2017-02-14] MEDS ORDERED: TACROLIMUS 0.5 MG CAP PO ONE (22:30)
[2017-02-14] MEDS ORDERED: TACROLIMUS 1 MG CAP PO ONE (22:30)
[2017-02-15] VITALS (8 sets, daily range): BP systolic 131–162; BP diastolic 73–84; PULSE 90–103; RESP 18–21; TEMP 97.4–98.7; O2SAT 93–98
[2017-02-15] MEDS: HYDROmorphone HCL PF 2 MG/ML VIAL IV PUSH PRN ×6 (00:41→23:07)
[2017-02-15] MEDS: PIPERACIL-TAZO 4.5 GM PREMIX 100 ML IV SCH ×4 (03:52→20:59)
[2017-02-15] MEDS: LEVOTHYROXINE SODIUM 75 MCG TAB PO SCH (04:54)
[2017-02-15 07:52] LABS: HEMATOCRIT 29.1 % (39.0-51.0); HEMOGLOBIN 10.4 GM/DL (13.0-17.0); MEAN CELL VOLUME 90.8 FL (80.0-100.0); MEAN CORPUSCULAR HEMOGLOBIN 32.4 PG (27.0-34.0); MEAN CORPUSCULAR HGB CONC 35.6 % (32.0-36.0); MEAN PLATELET VOLUME 7.8 FL (7.0-11.0); PLATELET COUNT 163 TH/MM3 (150-450); RED CELL DISTRIBUTION WIDTH 12.5 % (11.6-17.2); WHITE BLOOD COUNT 9.2 TH/MM3 (4.0-11.0)
[2017-02-15 08:07] LABS: BICARBONATE 23.9 MEQ/L (21.0-32.0); CALCIUM 7.6 MG/DL (8.5-10.1); CREATININE 0.95 MG/DL (0.60-1.30)
[2017-02-15] MEDS: SODIUM CHLOR 0.9% 1000 ML INJ 1,000 ML IV SCH ×2 (08:22→20:55)
[2017-02-15] MEDS: SODIUM CHLORIDE 0.9% FLUSH 10 ML FLUSH IV FLUSH SCH ×2 (08:24→20:57)
[2017-02-15] MEDS: ONDANSETRON HCL 4 MG/2 ML VIAL IVP PRN (08:24)
[2017-02-15] MEDS: MYCOPHENOLATE MOFETIL 500 MG TAB PO SCH ×2 (08:27→20:56)
[2017-02-15] MEDS: TACROLIMUS 1 MG CAP PO SCH ×2 (08:27→20:56)
[2017-02-15] MEDS: FOLIC ACID 1 MG TAB PO SCH (08:27)
[2017-02-15] MEDS: PANTOPRAZOLE SOD 20 MG DELAYED RELEASE TAB PO SCH (08:28)
[2017-02-15] MEDS: CARVEDILOL 3.125 MG TAB PO SCH ×2 (08:28→20:56)
[2017-02-15] MEDS: predniSONE 10 MG TAB PO SCH (08:28)
[2017-02-15] MEDS: DOCUSATE SODIUM 50 MG/SENNA 8.6 MG TAB PO SCH ×2 (08:28→20:56)
[2017-02-15] MEDS: TACROLIMUS 0.5 MG CAP PO SCH ×2 (08:28→20:56)
[2017-02-15] MEDS ORDERED: POTASSIUM CHLORIDE 25 MEQ EFFERVESCENT TAB PO ONE (09:15)
[2017-02-15] MEDS ORDERED: INFLUENZA VIRUS VACCINE (QUADRIVALENT) 0.5 ML SYR IM ONE (10:00)
[2017-02-15] MEDS ORDERED: PNEUMOCOCCAL POLYVALENT INJ 25 MCG/0.5 ML SYR IM ONE (10:00)
--- NOTE | 2017-02-15 10:13 | HHI.PR ---
Subjective Remarks f/u for cholecystectomy patient had no complaints. Pain controlled with dilaudid. Denied any N/V. Objective Vitals Vital Signs Date Time Temp Pulse Resp B/P (MAP) Pulse Ox O2 Delivery O2 Flow Rate FiO2 02/15/17 08:00 97.6 94 19 160/76 (104) 95 02/15/17 04:00 98.6 98 18 144/75 (98) 97 02/15/17 00:20 98.7 90 18 131/73 (92) 98 02/15/17 00:00 92 02/14/17 20:29 98.6 95 16 138/78 (98) 94 02/14/17 20:00 98 02/14/17 16:00 98.6 94 21 151/84 (106) 95 02/14/17 16:00 88 02/14/17 15:56 18 02/14/17 12:00 94 02/14/17 12:00 98.4 96 17 155/89 (111) 95 I/O 02/14/17 02/14/17 02/14/17 02/15/17 02/15/17 02/15/17 07:00 15:00 23:00 07:00 15:00 23:00 Intake Total 944 ml 700 ml 480 ml Output Total 500 ml 450 ml 800 ml Balance 444 ml 250 ml -320 ml Intake Oral 240 ml 700 ml 480 ml IV Total 704 ml Output Urine Total 500 ml 300 ml 800 ml Emesis 150 ml # Voids 5 # Bowel Movements 0 Result Diagram: 02/15/1717 02/15/1717 Objective Remarks GENERAL: in NAD CARDIOVASCULAR: Regular rate and rhythm without murmurs, gallops, or rubs. RESPIRATORY: Breath sounds equal bilaterally. No accessory muscle use. GASTROINTESTINAL: Abdomen soft and nondistended. no TTP. no peritoneal signs. Medications and IVs Current Medications Morphine Sulfate (Morphine Inj) 2 mg ONCE ONCE IV PUSH ; Start 02/13/17 at 19:15 ; Stop 02/13/17 at 19:23; Status DC Ondansetron HCl (Zofran Inj) 4 mg ONCE ONCE IVP Last administered on 02/13/17at 19:34; Start 02/13/17 at 19:15; Stop 02/13/17 at 19:16; Status DC Sodium Chloride 1,000 ml @ 1,000 mls/hr Q1H IV Last administered on 02/13/17at 19:34; Start 02/13/17 at 19:11; Stop 02/13/17 at 20:10; Status DC Sodium Chloride (NS Flush) 2 ml UNSCH PRN IV FLUSH FLUSH AFTER USING IV ACCESS ; Start 02/13/17 at 19:15; Stop 02/13/17 at 21:46; Status DC Morphine Sulfate (Morphine Inj) 2 mg ONCE ONCE IV PUSH Last administered on 02/13/17at 19:35; Start 02/13/17 at 19:30; Stop 02/13/17 at 19:31; Status DC Hydromorphone HCl (Dilaudid Pf Inj) 1 mg ONCE ONCE IV PUSH Last administered on 02/13/17at 20:06; Start 02/13/17 at 20:00; Stop 02/13/17 at 20:01; Status DC Piperacillin Sod/ Tazobactam Sod 100 ml @ 200 mls/hr ONCE ONCE IV Last administered on 02/13/17at 21:51; Start 02/13/17 at 21:15; Stop 02/13/17 at 21:44; Status DC Iohexol (Omnipaque 350 Inj) 97 ml STK-MED ONCE IVCONTRAST Last administered on 02/13/17at 21:10; Start 02/13/17 at 21:10; Stop 02/13/17 at 21:11; Status DC Potassium Chloride (KCl) 40 meq ONCE ONCE PO Last administered on 02/13/17at 21: 52; Start 02/13/17 at 21:45; Stop 02/13/17 at 21:48; Status DC Piperacillin Sod/ Tazobactam Sod 100 ml @ 200 mls/hr Q6H IV Last administered on 02/15/17at 03:52; Start 02/14/17 at 03:00 Sodium Chloride 1,000 ml @ 100 mls/hr Q10H IV Last administered on 02/15/17at 08 :22; Start 02/13/17 at 21:36 Sodium Chloride (NS Flush) 2 ml UNSCH PRN IV FLUSH FLUSH AFTER USING IV ACCESS ; Start 02/13/17 at 21:45 Sodium Chloride (NS Flush) 2 ml BID IV FLUSH Last administered on 02/15/17at 08: 24; Start 02/14/17 at 09:00 Ondansetron HCl (Zofran Inj) 4 mg Q6H PRN IVP NAUSEA OR VOMITING Last administered on 02/14/17at 20:46; Start 02/13/17 at 21:45 Acetaminophen (Tylenol) 650 mg Q6H PRN PO FEVER/PAIN SCALE 1 TO 2; Start at 21:45 Acetaminophen/ Hydrocodone Bitart ([place] 5-325 Mg) 1 tab Q4H PRN PO PAIN SCALE 3 TO 5 Last administered on 02/14/17at 06:42; Start 02/13/17 at 21:45 Senna/Docusate Sodium (Marylin-Colace) 1 tab BID PO Last administered on 02/15/17at 08:28; Start 02/14/17 at 09:00 Magnesium Hydroxide (Milk Of Magnesia Liq) 30 ml Q12H PRN PO Mild constipation ; Start 02/13/17 at 21:45 Sennosides (Senokot) 17.2 mg Q12H PRN PO Moderate constipation; Start 02/13/17 at 21:45 Bisacodyl (Dulcolax Supp) 10 mg DAILY PRN RECTAL SEVERE CONSITIPATION; Start at 21:45 Lactulose (Lactulose Liq) 30 ml DAILY PRN PO SEVERE CONSITIPATION; Start at 21:45 Morphine Sulfate (Morphine Inj) 2 mg Q4H PRN IV PUSH PAIN 6-10 Last administered on 02/14/17at 05:57; Start 02/13/17 at 21:45; Stop 02/14/17 at 10:06; Status DC Pneumococcal Polyvalent Vaccine (Pneumovax-23 Inj) 25 mcg ONCE ONCE IM ; Start 02/15/17 at 10:00; Stop 02/15/17 at 10:01; Status DC Influenza Virus Vaccine (Flu (Quadrivalent) Vaccine Inj) 0.5 ml ONCE ONCE IM ; Start 02/15/17 at 10:00; Stop 02/15/17 at 10:01; Status DC Carvedilol (Coreg) 3.125 mg BID PO Last administered on 02/15/17at 08:28; Start 02/14/17 at 09:00 Folic Acid (Folate) 0.4 mg DAILY PO Last administered on 1/7/18at 08:27; Start 02/14/17 at 09:00 Levothyroxine Sodium (Synthroid) 75 mcg DAILY@0600 PO Last administered on at 04:54; Start 02/14/17 at 06:00 Mycophenolate Mofetil (Cellcept) 1,000 mg BID PO Last administered on 02/15/17 08:27; Start 02/14/17 at 09:00 Prednisone (Deltasone) 10 mg DAILY PO Last administered on 02/15/17 08:28; Start 02/14/17 at 09:00 Tacrolimus (Prograf) 2.5 mg DAILY PO Last administered on 02/14/17 08:23; Start 02/14/17 at 09:00; Stop 02/14/17 at 21:42; Status DC Pantoprazole Sodium (Protonix) 20 mg DAILY PO Last administered on 02/15/17 08: 28; Start 02/14/17 at 09:00 Hydromorphone HCl (Dilaudid Pf Inj) 1 mg Q4H PRN IV PUSH pain 6-10 Last administered on 02/15/17at 08:51; Start 02/14/17 at 10:30 Tacrolimus (Prograf) 0.5 mg BID PO Last administered on 02/15/17 08:28; Start 02/15/17 at 09:00 Tacrolimus (Prograf) 2.5 mg ONCE ONCE PO ; Start 02/14/17 at 21:45; Stop at 21:46; Status Cancel Tacrolimus (Prograf) 2 mg ONCE ONCE PO Last administered on 02/14/17at 23:03; Start 02/14/17 at 22:30; Stop 02/14/17 at 22:31; Status DC Tacrolimus (Prograf) 0.5 mg ONCE ONCE PO Last administered on 02/14/17 23:03; Start 02/14/17 at 22:30; Stop 02/14/17 at 22:31; Status DC Tacrolimus (Prograf) 2 mg BID PO Last administered on 02/15/17 08:27; Start 02/15/17 at 09:00 Potassium Bicarb/ Potassium Chloride (K-Lyte Cl Eff) 50 meq ONCE ONCE PO ; Start 02/15/17 at 09:15; Stop 02/15/17 at 09:16; Status DC A/P Problem List: (1) Cholecystitis ICD Code: K81.9 - Cholecystitis, unspecified Status: Acute (2) HTN (hypertension) ICD Code: I10 - Essential (primary) hypertension (3) Hypokalemia ICD Code: E87.6 - Hypokalemia (4) Hyponatremia ICD Code: E87.1 - Hypo-osmolality and hyponatremia (5) Lung transplant recipient ICD Code: Z94.2 - Lung transplant status Assessment and Plan 61 y/o M who p/w abdominal pain Cholecystitis: acute onset of severe epigastric pain, LFTs normal. CT Abd/ Pelvis w/ partially calcified gallstone in gallbladder neck with pericholecystic inflammation characteristic of cholecystitis. -S/p Zosyn in ER, will continue w/ IV Abx. -patient schedule for surgery tomorrow. -on dilaudid for pain. continue with IVFs. elevated BP -secondary to pain. improved with pain medication. Hypokalemia: -replenish as needed. Hyponatremia: - Na 128, IVF for hydration. now 132. Lung Transplant: - h/o bilateral lung transplant 7yrs ago, resume home Prednisone, CellCept and Prograf DVT Prophylaxis: SCD/Teds. Discharge Planning patient scheduled for surgery tomorrow. Jannet Miller MD Feb 15, 2017 10:13
--- NOTE | 2017-02-15 11:50 | HHI.PR ---
cc: Gareth Swift MD Subjective Subjective Notes c/o ruq pain, no fevers, no nausea Objective Vitals/I&O Vital Signs Date Time Temp Pulse Resp B/P (MAP) Pulse Ox O2 Delivery O2 Flow Rate FiO2 02/15/17 08:00 97.6 94 19 160/76 (104) 95 02/13/17 20:40 Nasal Cannula 2.00 Labs Laboratory Tests Test 02/15/17 07:17 White Blood Count 9.2 Red Blood Count 3.20 Hemoglobin 10.4 Hematocrit 29.1 Mean Corpuscular Volume 90.8 Mean Corpuscular Hemoglobin 32.4 Mean Corpuscular Hemoglobin Concent 35.6 Red Cell Distribution Width 12.5 Platelet Count 163 Mean Platelet Volume 7.8 Blood Urea Nitrogen 13 Creatinine 0.95 Random Glucose 82 Calcium Level 7.6 Sodium Level 134 Potassium Level 3.4 Chloride Level 101 Carbon Dioxide Level 23.9 Anion Gap 9 Estimat Glomerular Filtration Rate 80 Abdomen: Other (soft, +ttp ruq, localized rebound) A/P Assessment and Plan acute cholecystis PLAN or tomorrow npo after mn pain control abx discussed with patient Gareth Swift MD Feb 15, 2017 11:50
[2017-02-15] MEDS: PRAVASTATIN SOD 20 MG TAB PO SCH (17:15)
[2017-02-15] MEDS ORDERED: SULFAMETHOXAZOLE-TRIMETHOPRIM DS 800-160 MG TAB PO ONE (17:45)
[2017-02-15] MEDS: POTASSIUM PHOSPHATE/SODIUM PHOSPHATE 250 MG TAB PO SCH (20:56)
[2017-02-15] MEDS ORDERED: METOPROLOL TARTRATE 25 MG TAB PO PRN (23:30)
[2017-02-15] MEDS ORDERED: POVIDONE IODINE 5% (ANTISEPSIS KIT) 4 APPLICATIONS EACH NARE PRN (23:30)
[2017-02-15] MEDS ORDERED: LACTATED RINGER'S 1000 ML IV PRN (23:30)
[2017-02-15] MEDS ORDERED: CHLORHEXIDINE GLUCONATE 2 % 1 PACK (2 CLOTHS) TOPICAL PRN (23:30)
[2017-02-15] MEDS ORDERED: SODIUM CHLORID 0.9% 500 ML IV PRN (23:30)
[2017-02-16] VITALS (7 sets, daily range): BP systolic 138–172; BP diastolic 77–92; PULSE 83–98; RESP 16–20; TEMP 96.2–99.5; O2SAT 91–98
[2017-02-16] MEDS: PIPERACIL-TAZO 4.5 GM PREMIX 100 ML IV SCH ×4 (03:24→21:09)
[2017-02-16] MEDS: LEVOTHYROXINE SODIUM 75 MCG TAB PO SCH (05:41)
[2017-02-16] MEDS: HYDROmorphone HCL PF 2 MG/ML VIAL IV PUSH PRN ×4 (05:41→23:33)
[2017-02-16 07:26] LABS: HEMATOCRIT 31.4 % (39.0-51.0); HEMOGLOBIN 10.8 GM/DL (13.0-17.0); MEAN CELL VOLUME 90.4 FL (80.0-100.0); MEAN CORPUSCULAR HGB CONC 34.3 % (32.0-36.0); PLATELET COUNT 179 TH/MM3 (150-450); RED BLOOD COUNT 3.48 MIL/MM3 (4.50-5.90); RED CELL DISTRIBUTION WIDTH 12.6 % (11.6-17.2); WHITE BLOOD COUNT 8.7 TH/MM3 (4.0-11.0)
[2017-02-16 07:47] LABS: BICARBONATE 20.6 MEQ/L (21.0-32.0); CALCIUM 8.1 MG/DL (8.5-10.1)
[2017-02-16] MEDS: MYCOPHENOLATE MOFETIL 500 MG TAB PO SCH ×2 (09:30→23:27)
[2017-02-16] MEDS: CARVEDILOL 3.125 MG TAB PO SCH ×2 (09:31→23:27)
[2017-02-16] MEDS: predniSONE 10 MG TAB PO SCH (09:31)
[2017-02-16] MEDS: PRAVASTATIN SOD 20 MG TAB PO SCH (09:31)
[2017-02-16] MEDS: PANTOPRAZOLE SOD 20 MG DELAYED RELEASE TAB PO SCH (09:31)
[2017-02-16] MEDS: DOCUSATE SODIUM 50 MG/SENNA 8.6 MG TAB PO SCH ×2 (09:31→21:00)
[2017-02-16] MEDS: TACROLIMUS 0.5 MG CAP PO SCH ×2 (09:34→23:28)
[2017-02-16] MEDS: FOLIC ACID 1 MG TAB PO SCH (09:34)
[2017-02-16] MEDS: TACROLIMUS 1 MG CAP PO SCH ×2 (09:34→23:27)
[2017-02-16] MEDS: POTASSIUM PHOSPHATE/SODIUM PHOSPHATE 250 MG TAB PO SCH ×2 (09:34→23:28)
[2017-02-16] MEDS: SODIUM CHLORIDE 0.9% FLUSH 10 ML FLUSH IV FLUSH SCH ×2 (09:35→21:00)
[2017-02-16] MEDS: SODIUM CHLOR 0.9% 1000 ML INJ 1,000 ML IV SCH ×2 (09:36→21:05)
[2017-02-16] MEDS: ONDANSETRON HCL 4 MG/2 ML VIAL IVP PRN ×2 (09:47→21:04)
--- NOTE | 2017-02-16 10:03 | HHI.PR ---
Subjective Remarks f/u for cholecystitis patient scheduled for surgery today. patient stated IV dilaudid only works for 3.5 hours. He is asking for pain medication. denied any N/V. remains afebrile. he has no other complaints. Objective Vitals Vital Signs Date Time Temp Pulse Resp B/P (MAP) Pulse Ox O2 Delivery O2 Flow Rate FiO2 02/16/17 07:57 96.2 95 18 138/77 (97) 95 02/16/17 05:21 99.5 95 18 164/91 (115) 97 02/16/17 00:22 97.6 91 20 156/82 (106) 94 02/15/17 20:00 98.2 90 20 152/84 (106) 93 02/15/17 20:00 103 02/15/17 16:00 97.4 100 18 162/84 (110) 96 02/15/17 12:00 98.7 94 21 152/82 (105) 97 I/O 02/15/17 02/15/17 02/15/17 02/16/17 02/16/17 02/16/17 07:00 15:00 23:00 07:00 15:00 23:00 Intake Total 480 ml 100 ml 1790 ml 480 ml Output Total 800 ml 500 ml 1200 ml Balance -320 ml 100 ml 1290 ml -720 ml Intake Oral 480 ml 690 ml 480 ml IV Total 100 ml 1100 ml Output Urine Total 800 ml 500 ml 1200 ml # Bowel Movements 0 Result Diagram: 02/16/17 0550 02/16/17 0550 Imaging Last Impressions Chest X-Ray 02/14/17 0000 Signed Impressions: Service Date/Time: Tuesday, February 14, 2017 15:14 - CONCLUSION: 1. No acute cardiopulmonary disease. Kadeem Gaxiola MD Abdomen/Pelvis CT 02/13/171910 Signed Impressions: Service Date/Time: Monday, February 13, 2017 20:43 - CONCLUSION: 1. Partially calcified gallstone in gallbladder neck with pericholecystic inflammatory changes most characteristic of cholecystitis. 2. Colonic diverticulosis without diverticulitis. Surendra Glass MD Abdomen X-Ray 02/13/171910 Signed Impressions: Service Date/Time: Monday, February 13, 2017 19:36 - CONCLUSION: 1. No acute findings. Surendra Glass MD Objective Remarks GENERAL: in NAD CARDIOVASCULAR: Regular rate and rhythm without murmurs, gallops, or rubs. RESPIRATORY: Breath sounds equal bilaterally. No accessory muscle use. GASTROINTESTINAL: Abdomen soft and nondistended. + TTP in the RUQ. no peritoneal signs. Medications and IVs Current Medications Morphine Sulfate (Morphine Inj) 2 mg ONCE ONCE IV PUSH ; Start 02/13/17 at 19:15 ; Stop 02/13/17 at 19:23; Status DC Ondansetron HCl (Zofran Inj) 4 mg ONCE ONCE IVP Last administered on 02/13/17at 19:34; Start 02/13/17 at 19:15; Stop 02/13/17 at 19:16; Status DC Sodium Chloride 1,000 ml @ 1,000 mls/hr Q1H IV Last administered on 02/13/17 19:34; Start 02/13/17 at 19:11; Stop 02/13/17 at 20:10; Status DC Sodium Chloride (NS Flush) 2 ml UNSCH PRN IV FLUSH FLUSH AFTER USING IV ACCESS ; Start 02/13/17 at 19:15; Stop 02/13/17 at 21:46; Status DC Morphine Sulfate (Morphine Inj) 2 mg ONCE ONCE IV PUSH Last administered on 02/13/17at 19:35; Start 02/13/17 at 19:30; Stop 02/13/17 at 19:31; Status DC Hydromorphone HCl (Dilaudid Pf Inj) 1 mg ONCE ONCE IV PUSH Last administered on 02/13/17at 20:06; Start 02/13/17 at 20:00; Stop 02/13/17 at 20:01; Status DC Piperacillin Sod/ Tazobactam Sod 100 ml @ 200 mls/hr ONCE ONCE IV Last administered on 02/13/17at 21:51; Start 02/13/17 at 21:15; Stop 02/13/17 at 21:44; Status DC Iohexol (Omnipaque 350 Inj) 97 ml STK-MED ONCE IVCONTRAST Last administered on 02/13/17at 21:10; Start 02/13/17 at 21:10; Stop 02/13/17 at 21:11; Status DC Potassium Chloride (KCl) 40 meq ONCE ONCE PO Last administered on 02/13/17at 21: 52; Start 02/13/17 at 21:45; Stop 02/13/17 at 21:48; Status DC Piperacillin Sod/ Tazobactam Sod 100 ml @ 200 mls/hr Q6H IV Last administered on 02/16/17at 03:24; Start 02/14/17 at 03:00 Sodium Chloride 1,000 ml @ 100 mls/hr Q10H IV Last administered on 02/16/17at 09 :36; Start 02/13/17 at 21:36 Sodium Chloride (NS Flush) 2 ml UNSCH PRN IV FLUSH FLUSH AFTER USING IV ACCESS ; Start 02/13/17 at 21:45 Sodium Chloride (NS Flush) 2 ml BID IV FLUSH Last administered on 02/16/17 09: 35; Start 02/14/17 at 09:00 Ondansetron HCl (Zofran Inj) 4 mg Q6H PRN IVP NAUSEA OR VOMITING Last administered on 02/16/17at 09:47; Start 02/13/17 at 21:45 Acetaminophen (Tylenol) 650 mg Q6H PRN PO FEVER/PAIN SCALE 1 TO 2; Start at 21:45 Acetaminophen/ Hydrocodone Bitart ([place] 5-325 Mg) 1 tab Q4H PRN PO PAIN SCALE 3 TO 5 Last administered on 02/14/17at 06:42; Start 02/13/17 at 21:45 Senna/Docusate Sodium (Marylin-Colace) 1 tab BID PO Last administered on 02/16/17at 09:31; Start 02/14/17 at 09:00 Magnesium Hydroxide (Milk Of Magnesia Liq) 30 ml Q12H PRN PO Mild constipation ; Start 02/13/17 at 21:45 Sennosides (Senokot) 17.2 mg Q12H PRN PO Moderate constipation; Start 02/13/17 at 21:45 Bisacodyl (Dulcolax Supp) 10 mg DAILY PRN RECTAL SEVERE CONSITIPATION; Start at 21:45 Lactulose (Lactulose Liq) 30 ml DAILY PRN PO SEVERE CONSITIPATION; Start at 21:45 Morphine Sulfate (Morphine Inj) 2 mg Q4H PRN IV PUSH PAIN 6-10 Last administered on 02/14/17at 05:57; Start 02/13/17 at 21:45; Stop 02/14/17 at 10:06; Status DC Pneumococcal Polyvalent Vaccine (Pneumovax-23 Inj) 25 mcg ONCE ONCE IM ; Start 02/15/17 at 10:00; Stop 02/15/17 at 10:01; Status DC Influenza Virus Vaccine (Flu (Quadrivalent) Vaccine Inj) 0.5 ml ONCE ONCE IM Last administered on 02/15/17at 10:13; Start 02/15/17 at 10:00; Stop 02/15/17 at 10: 01; Status DC Carvedilol (Coreg) 3.125 mg BID PO Last administered on 02/16/17 09:31; Start 02/14/17 at 09:00 Folic Acid (Folate) 0.4 mg DAILY PO Last administered on 02/16/17 09:34; Start 02/14/17 at 09:00 Levothyroxine Sodium (Synthroid) 75 mcg DAILY@0600 PO Last administered on 05:41; Start 02/14/17 at 06:00 Mycophenolate Mofetil (Cellcept) 1,000 mg BID PO Last administered on 02/16/17 09:30; Start 02/14/17 at 09:00 Prednisone (Deltasone) 10 mg DAILY PO Last administered on 02/16/17 09:31; Start 02/14/17 at 09:00 Tacrolimus (Prograf) 2.5 mg DAILY PO Last administered on 02/14/17 08:23; Start 02/14/17 at 09:00; Stop 02/14/17 at 21:42; Status DC Pantoprazole Sodium (Protonix) 20 mg DAILY PO Last administered on 02/16/17 09: 31; Start 02/14/17 at 09:00 Hydromorphone HCl (Dilaudid Pf Inj) 1 mg Q4H PRN IV PUSH pain 6-10 Last administered on 02/16/17 09:42; Start 02/14/17 at 10:30 Tacrolimus (Prograf) 0.5 mg BID PO Last administered on 02/16/17 09:34; Start 02/15/17 at 09:00 Tacrolimus (Prograf) 2.5 mg ONCE ONCE PO ; Start 02/14/17 at 21:45; Stop at 21:46; Status Cancel Tacrolimus (Prograf) 2 mg ONCE ONCE PO Last administered on 02/14/17at 23:03; Start 02/14/17 at 22:30; Stop 02/14/17 at 22:31; Status DC Tacrolimus (Prograf) 0.5 mg ONCE ONCE PO Last administered on 02/14/17at 23:03; Start 02/14/17 at 22:30; Stop 02/14/17 at 22:31; Status DC Tacrolimus (Prograf) 2 mg BID PO Last administered on 02/16/17at 09:34; Start 02/15/17 at 09:00 Potassium Bicarb/ Potassium Chloride (K-Lyte Cl Eff) 50 meq ONCE ONCE PO Last administered on 02/15/17at 11:52; Start 02/15/17 at 09:15; Stop 02/15/17 at 09: 16; Status DC Pravastatin Sodium (Pravachol) 20 mg DAILY PO Last administered on 02/16/17at 09: 31; Start 02/15/17 at 17:15 Potassium Phos/ Sodium Phos (K-Phos Neutral) 250 mg BID PO Last administered on 02/16/17at 09:34; Start 02/15/17 at 21:00 Trimethoprim/ Sulfamethoxazole (Bactrim Ds 800-160 Mg) 1 tab ONCE ONCE PO ; Start 02/15/17 at 17:45; Stop 02/15/17 at 18:20; Status DC Lactated Ringer's 1,000 ml @ 30 mls/hr Q24H PRN IV SEE LABEL COMMENTS; Start at 23:30; Stop 02/18/17 at 23:29 Sodium Chloride 500 ml @ 30 mls/hr [id number] PRN IV SEE LABEL COMMENTS; Start 02/15/17 at 23:30; Stop 02/18/17 at 23:29 Metoprolol Tartrate (Lopressor) 25 mg TRAY WORKER PRN PO SEE LABEL COMMENTS; Start 02/15/17 at 23:30; Stop 02/18/17 at 23:29 Povidone Iodine (Betadine 5% Antisepsis Kit) 1 applic TRAY WORKER PRN EACH NARE SEE LABEL COMMENTS; Start 02/15/17 at 23:30; Stop 02/18/17 at 23:29 Chlorhexidine Gluconate (Chlorhexidine 2% Cloth) 3 pack TRAY WORKER PRN TOPICAL SEE LABEL COMMENTS; Start 02/15/17 at 23:30; Stop 02/18/17 at 23:29 A/P Problem List: (1) Cholecystitis ICD Code: K81.9 - Cholecystitis, unspecified Status: Acute (2) HTN (hypertension) ICD Code: I10 - Essential (primary) hypertension (3) Hypokalemia ICD Code: E87.6 - Hypokalemia (4) Hyponatremia ICD Code: E87.1 - Hypo-osmolality and hyponatremia (5) Lung transplant recipient ICD Code: Z94.2 - Lung transplant status Assessment and Plan 61 y/o M who p/w abdominal pain Cholecystitis: acute onset of severe epigastric pain, LFTs normal. CT Abd/ Pelvis w/ partially calcified gallstone in gallbladder neck with pericholecystic inflammation characteristic of cholecystitis. -S/p Zosyn in ER,continue w/ IV Abx. -patient schedule for surgery today. -will increase dilaudid frequency for pain. continue with IVFs. elevated BP -secondary to pain. improved with pain medication. Hypokalemia: -replenish as needed. Hyponatremia: - Na 128, IVF for hydration. now 132. Lung Transplant: - h/o bilateral lung transplant 7yrs ago, resume home Prednisone, CellCept and Prograf DVT Prophylaxis: SCD/Teds. Discharge Planning patient scheduled for surgery today. Jannet Miller MD Feb 16, 2017 10:03
[2017-02-16] MEDS ORDERED: DEXAMETHASONE SOD PHOS 4 MG/ML VIAL IV ONE (12:00)
[2017-02-16] MEDS ORDERED: SODIUM CHLORIDE 0.9% 20 ML VIAL IV ONE (12:00)
[2017-02-16] MEDS ORDERED: ROCURONIUM INJ 50 MG/5 ML SYRINGE IV PUSH ONE (12:00)
[2017-02-16] MEDS ORDERED: PROPOFOL 200 MG/20 ML AMP IV ONE (12:00)
[2017-02-16] MEDS ORDERED: NEOSTIGMINE 5 MG/5 ML SYRINGE IV PUSH ONE (12:00)
[2017-02-16] MEDS ORDERED: LIDOCAINE HCL 1% PF 5 ML SYRINGE OTHER ONE (12:00)
[2017-02-16] MEDS ORDERED: LACTATED RINGER'S 1000 ML INJ 1,000 ML IV ONE (12:00)
[2017-02-16] MEDS ORDERED: PHENYLEPH/NS 1000 MCG/10 ML SYR IV ONE (12:00)
[2017-02-16] MEDS ORDERED: GLYCOPYRROLATE 1 MG/5 ML SYRINGE IV PUSH ONE (12:00)
[2017-02-16] MEDS ORDERED: ONDANSETRON HCL 4 MG/2 ML VIAL IV PUSH ONE (12:00)
[2017-02-16] MEDS ORDERED: BUPIVACAINE/EPINEPHRINE 0.25% 50 ML VIAL ONE (17:41)
[2017-02-16] MEDS ORDERED: HYDROmorphone HCL PF 2 MG/ML VIAL ONE (17:54)
[2017-02-16] MEDS ORDERED: ACETAMINOPHEN 1000 MG/100 ML 100 ML IV ONE (17:54)
[2017-02-16] MEDS ORDERED: MIDAZOLAM HCL 2 MG/2 ML VIAL ONE ×2 (19:28→20:31)
--- NOTE | 2017-02-16 20:15 | HHI.PR ---
cc: Surendra Pineda MD Immediate Post Op Note Procedure Date: Feb 16, 2017 Pre Op Diagnosis: (1) Cholecystitis (2) Lung transplant recipient Post Op Diagnosis: (1) Acute gangrenous cholecystitis (2) Cholecystitis (3) Lung transplant recipient (4) Status post laparoscopic cholecystectomy Surgeon: Surendra Pineda Physician Intensivist(s): Refer to or record Procedure: Laparoscopic cholecystectomy with placement of drain Findings: Acutely inflamed necrotic gallbladder with purulent material within the gallbladder Complications: None Specimen(s) removed: Gallbladder Estimated blood loss: 250 cc Anesthesia: General Drains: TARA IVF Patient to: PACU Patient Condition: Good Implant/Devices: SEE IMPLANT LOG (if applicable) Surendra Pineda MD Feb 16, 2017 20:15
[2017-02-16] MEDS ORDERED: *morphine SULFATE 4 MG/ML PERIprocedure ONLY ONE ×2 (20:58→21:22)
[2017-02-16] MEDS ORDERED: *MEPERIDINE 25 MG INJ VIAL PERIprocedural Use ONLY ONE (21:22)
[2017-02-16] MEDS ORDERED: DO NOT ADM ANY ANTICOAGULANT DRUGS PRN (22:00)
[2017-02-17] VITALS: BP_SYST 161; BP_SYST 164; BP_DIAS 79; BP_DIAS 90; PULSE 100; PULSE 68; RESP 18; RESP 20; TEMP 96.8; TEMP 98.8; O2SAT 95; O2SAT 96
[2017-02-17] MEDS: HYDROmorphone HCL PF 2 MG/ML VIAL IV PUSH PRN ×3 (02:46→13:23)
[2017-02-17] MEDS: PIPERACIL-TAZO 4.5 GM PREMIX 100 ML IV SCH ×2 (02:46→08:53)
[2017-02-17 04:00] VITALS: BP 171/97; PULSE 107; RESP 20; TEMP 96.9; O2SAT 97
[2017-02-17] MEDS: LEVOTHYROXINE SODIUM 75 MCG TAB PO SCH (06:00)
[2017-02-17 07:41] LABS: HEMATOCRIT 32.2 % (39.0-51.0); HEMOGLOBIN 11.4 GM/DL (13.0-17.0); MEAN CELL VOLUME 90.9 FL (80.0-100.0); MEAN CORPUSCULAR HEMOGLOBIN 32.2 PG (27.0-34.0); MEAN CORPUSCULAR HGB CONC 35.4 % (32.0-36.0); MEAN PLATELET VOLUME 7.8 FL (7.0-11.0); PLATELET COUNT 245 TH/MM3 (150-450); RED BLOOD COUNT 3.54 MIL/MM3 (4.50-5.90); RED CELL DISTRIBUTION WIDTH 12.6 % (11.6-17.2); WHITE BLOOD COUNT 8.3 TH/MM3 (4.0-11.0)
--- NOTE | 2017-02-17 07:50 | MP ---
cc: SURENDRA PNIEDA M.D. DATE OF SURGERY 02/16/2017 PREOPERATIVE DIAGNOSIS Cholelithiasis, cholecystitis. previous Lung transplant POSTOPERATIVE DIAGNOSIS Cholelithiasis, cholecystitis with gangrenous necrotic cholecystitis with purulent material in the gallbladder and a intrahepatic gallbladder. PROCEDURE Laparoscopic cholecystectomy with placement of drain. with modifier for difficulty of the case ANESTHESIA General. SURGEON Surendra Pineda MD INDICATIONS This is a pleasant 61-year-old gentleman who has findings of acute cholecystitis. He has a previous lung transplant. Plans were for above. Intraoperatively it was found that his gallbladder was fairly gangrenous, necrotic and very friable. We are able to eventually find the cystic duct, cystic artery. With the amount of the inflammation, we placed a TARA. the case required more time because of the difficult dissection and the amount of inflammation PROCEDURE The patient was taken to the operating room and placed in supine position after anesthesia. His abdomen was prepped with Betadine. We make an incision just below the umbilicus. Veress needle was inserted, saline load test performed and the abdomen was insufflated to 15 mmHg. A 10-mm trocar was introduced. Camera was introduced. Three other working ports are placed, a 5-mm below the xiphoid, a 5-mm in between the two previously placed ports in the midline, third port in the right upper quadrant. The gallbladder was fairly edematous and necrotic. Omentum is stuck to it which is teased away using electrocautery and blunt dissection and using the harmonic scalpel. The gallbladder is grasped, is very tense with this grasping white bile and purulent material returns. This is evacuated. Small stones are suctioned out. We then do a retrograde dissection as well as antegrade dissection; it is fairly scarred in at the neck of the gallbladder. With careful meticulous dissection using hydrodissection and laparoscopic [place], were are able to clearly identify the cystic duct and cystic artery. These were doubly ligated and transected. The gallbladder is then teased off the gallbladder bed. It is somewhat intrahepatic and inflammation caused the liver to bleed. After the gallbladder is removed we are able to place an EndoCatch, pulled in through the umbilical incision. We then irrigate copiously. The bleeding liver edge is stopped using a combination of electrocautery device to seal, Dylon and surgical SNoW to stop the bleeding. Because of the amount of inflammatory response, we elect to place a TARA in the gallbladder fossa. Again we check our dissection site, see the cystic duct and cystic artery are hemostatic without biliary leakage. The TARA is brought out through the midline port site. The trocars are removed. The umbilical fascial defect is closed with 0 Vicryl. The skin is closed with a 4-0 Monocryl. Steri-Strips are applied. Sterile bandage applied. The patient tolerated the procedure well and had no immediate postop complication. Surendra Pineda MD JTHEE/DOMENIC /8:06 PM /7:23 AM MTDD
[2017-02-17 08:00] VITALS: BP 170/98; PULSE 111; PULSE 115; RESP 18; TEMP 97.1; O2SAT 92
[2017-02-17 08:07] LABS: BICARBONATE 20.3 MEQ/L (21.0-32.0); CALCIUM 7.9 MG/DL (8.5-10.1); CREATININE 1.04 MG/DL (0.60-1.30)
[2017-02-17] MEDS: SODIUM CHLOR 0.9% 1000 ML INJ 1,000 ML IV SCH (08:48)
[2017-02-17] MEDS: TACROLIMUS 0.5 MG CAP PO SCH (08:51)
[2017-02-17] MEDS: DOCUSATE SODIUM 50 MG/SENNA 8.6 MG TAB PO SCH (08:51)
[2017-02-17] MEDS: FOLIC ACID 1 MG TAB PO SCH (08:51)
[2017-02-17] MEDS: POTASSIUM PHOSPHATE/SODIUM PHOSPHATE 250 MG TAB PO SCH (08:52)
[2017-02-17] MEDS: TACROLIMUS 1 MG CAP PO SCH (08:52)
[2017-02-17] MEDS: MYCOPHENOLATE MOFETIL 500 MG TAB PO SCH (08:52)
[2017-02-17] MEDS: CARVEDILOL 3.125 MG TAB PO SCH (08:52)
[2017-02-17] MEDS: PRAVASTATIN SOD 20 MG TAB PO SCH (08:52)
[2017-02-17] MEDS: PANTOPRAZOLE SOD 20 MG DELAYED RELEASE TAB PO SCH (08:52)
[2017-02-17] MEDS: predniSONE 10 MG TAB PO SCH (08:53)
[2017-02-17 08:57] VITALS: O2SAT 92
[2017-02-17] MEDS: ACETAMINOPHEN/HYDROcodone 325 MG/5 MG TAB PO PRN (09:06)
[2017-02-17] MEDS ORDERED: AUGM875T3 PO (10:10)
[2017-02-17] MEDS ORDERED: AMOXICILLIN/CLAVULANATE K 875 MG TAB PO SCH (10:15)
[2017-02-17] MEDS ORDERED: HYDR-3516 PO (11:15)
--- NOTE | 2017-02-17 11:28 | HHI.DCPOC ---
Discharge Care Plan Diagnosis: (1) Acute gangrenous cholecystitis (2) HTN (hypertension) (3) Lung transplant recipient (4) Status post laparoscopic cholecystectomy Goals to Promote Your Health * To prevent worsening of your condition and complications * To maintain your health at the optimal level Directions to Meet Your Goals Take your medications as prescribed Follow your dietary instruction Follow activity as directed Keep your appointments as scheduled Take your immunizations and boosters as scheduled If your symptoms worsen call your PCP, if no PCP go to Urgent Care Center or Emergency Room Smoking is Dangerous to Your Health. Avoid second hand smoke Call the 24-hour hour crisis hotline for domestic abuse at Jannet Miller MD Feb 17, 2017 11:28
--- NOTE | 2017-02-17 11:28 | HHI.DS ---
Discharge Summary Admission Date Feb 13, 2017 at 21:41 Discharge Date: Feb 17, 2017 Admitting Diagnosis Cholecystitis (1) Cholecystitis ICD Code: K81.9 - Cholecystitis, unspecified Diagnosis: Principal Status: Acute (2) Hypokalemia ICD Code: E87.6 - Hypokalemia Diagnosis: Secondary (3) Hyponatremia ICD Code: E87.1 - Hypo-osmolality and hyponatremia Diagnosis: Secondary (4) Lung transplant recipient ICD Code: Z94.2 - Lung transplant status Diagnosis: Secondary (5) Elevated blood pressure reading ICD Code: R03.0 - Elevated blood-pressure reading, without diagnosis of hypertension Diagnosis: Secondary (6) Status post laparoscopic cholecystectomy ICD Code: Z90.49 - Acquired absence of other specified parts of digestive tract Diagnosis: Principal Procedures Laparoscopic cholecystectomy on 02/16/2017 Brief History - From Admission This is a 61-year-old male with a PMH of HTN, Hyperlipidemia, Lung Transplant and Hypothyroidism who presented to the ER with complaints of epigastric pain starting earlier today. States the pain is intermittent, sharp and severe 10/ 10. Non-radiating. No alleviating or exacerbating factors. Denies associated nausea or vomiting. No fever, chills or sick contacts. On arrival, BP 221/158 , HR 105, O2 sat 98% on RA, Afebrile. CBC essentially unremarkable. K+ 3.2. GFR 73. Lactic Acid 1.3. INR 1.0. UA negative. Abd X-ray w/ no acute findings. CT Abd/Pelvis w/ partially calcified gallstone in gallbladder neck with pericholecystic inflammatory changes characteristic of cholecystitis. S/p Morphine and Zosyn in ER. CBC/BMP: 02/17/17 0711 02/17/17 0711 Significant Findings Laboratory Tests Test 02/15/17 07:17 02/16/17 05:50 02/17/17 07:11 Red Blood Count 3.20 MIL/MM3 (4.50-5.90) 3.48 MIL/MM3 (4.50-5.90) 3.54 MIL/MM3 (4.50-5.90) Hemoglobin 10.4 GM/DL (13.0-17.0) 10.8 GM/DL (13.0-17.0) 11.4 GM/DL (13.0-17.0) Hematocrit 29.1 % (39.0-51.0) 31.4 % (39.0-51.0) 32.2 % (39.0-51.0) Calcium Level 7.6 MG/DL (8.5-10.1) 8.1 MG/DL (8.5-10.1) 7.9 MG/DL (8.5-10.1) Sodium Level 134 MEQ/L (136-145) 131 MEQ/L (136-145) 135 MEQ/L (136-145) Potassium Level 3.4 MEQ/L (3.5-5.1) 3.1 MEQ/L (3.5-5.1) Estimat Glomerular Filtration Rate 80 ML/MIN (>89) 75 ML/MIN (>89) 72 ML/MIN (>89) Carbon Dioxide Level 20.6 MEQ/L (21.0-32.0) 20.3 MEQ/L (21.0-32.0) Random Glucose 121 MG/DL (74-106) Imaging Last Impressions Chest X-Ray 02/14/17 0000 Signed Impressions: Service Date/Time: Tuesday, February 14, 2017 15:14 - CONCLUSION: 1. No acute cardiopulmonary disease. Kadeem Gaxiola MD Abdomen/Pelvis CT 02/13/171910 Signed Impressions: Service Date/Time: Monday, February 13, 2017 20:43 - CONCLUSION: 1. Partially calcified gallstone in gallbladder neck with pericholecystic inflammatory changes most characteristic of cholecystitis. 2. Colonic diverticulosis without diverticulitis. Surendra Glass MD Abdomen X-Ray 02/13/171910 Signed Impressions: Service Date/Time: Monday, February 13, 2017 19:36 - CONCLUSION: 1. No acute findings. Surendra Glass MD PE at Discharge GENERAL: in NAD CARDIOVASCULAR: Regular rate and rhythm without murmurs, gallops, or rubs. RESPIRATORY: Breath sounds equal bilaterally. No accessory muscle use. GASTROINTESTINAL: Abdomen soft and nondistended. Negative for any tenderness to palpation. wound dry, clean and intact. Drain in place with minimal serosanguineous drainage. Pt update on day of discharge Follow-up for laparoscopic cholecystectomy Patient denied any abdominal pain or nausea vomiting. He is tolerating his diet. He is very anxious to go home. Patient's at the bedside during interview. Patient is not on any oxygen as documented in the EMR system. discussed with patient's nurse and stated this needs to be corrected. Denies any shortness of breathing or cough. Hospital Course 61 y/o M who p/w abdominal pain Cholecystitis: acute onset of severe epigastric pain, LFTs normal. CT Abd/ Pelvis w/ partially calcified gallstone in gallbladder neck with pericholecystic inflammation characteristic of cholecystitis. -Status post laparoscopic cholecystectomy on 02/16/2017 showing gangrenous gallbladder. -After surgery patient pain was controlled oral medication, he tolerated his diet and was doing well. -Per general surgeon Dr. Pineda can follow-up as outpatient Feb 24 at 2:50PM for TARA drain removal -Patient was on Zosyn during his hospital course was transitioned to Augmentin once he tolerated his oral medication. elevated BP -Very labile most likely secondary to pain. Hypokalemia: -replenish as needed. Hyponatremia: - Na 128, IVF for hydration. now 132. Lung Transplant: - h/o bilateral lung transplant 7yrs ago, resume home Prednisone, CellCept and Prograf Pt Condition on Discharge: Good Discharge Disposition: Discharge Home Discharge Time: <= 30 minutes Discharge Instructions DIET: Follow Instructions for: Heart Healthy Diet Activities you can perform: See Additionl Instruction Other Activity Instructions: As directed by her general surgeon. Follow up Referrals: PCP Follow-up - 1 Week PCP Follow-up Surgical - 02/24/17 with Surendra Pineda MD Appt set for ThursdayFeb 24 at 2 :50 PM Surgical New Medications: Amoxicillin-Clavulanate (Augmentin) 875-125 Mg Tab 1 TAB PO BID for Infection for 7 Days, #14 TAB 0 Refills Hydrocodone/Acetaminophen (Hydrocodone-Acetamin 5-325 mg) 5 Mg-325 Mg Tablet 1-2 TAB PO Q4H PRN for moderate to severe pain, #30 TAB 0 Refills Continued Medications: Carvedilol (Carvedilol) 3.125 Mg Tab 3.125 MG PO BID, #60 TAB 0 Refills Folic Acid (Folic Acid) 0.4 Mg Tab 400 MCG PO DAILY for Nutritional Supplement, TAB 0 Refills Levothyroxine (Levothyroxine) 75 Mcg Tab 75 MCG PO DAILY for Thyroid, #30 TAB 0 Refills Lovastatin (Lovastatin) 20 Mg Tab 20 MG PO DAILY for Cholesterol Management, #30 TAB 0 Refills Magnesium Oxide (Mag-Oxide) 200 Mg Magnesium Tablet 400 BID Mycophenolate (Mycophenolate) 500 Mg Tab 1000 MG PO BID for Immunosuppression, #120 TAB 0 Refills Omeprazole (Omeprazole) 20 Mg Cap 20 MG DAILY Papaverine-Phentolamine (Papaverine-Phentolamine M 30-1 mg/ml) 30 Mg-1 Mg/Ml (1 Ml) Giuliana 0.2 ML Potassium Phosphate-Sodium Phosphate (K-Phos Neutral) 155-852-130 Mg Tab 250 MG PO BID for Electrolyte Replacement, #120 TAB 0 Refills Prednisone (Prednisone) 10 Mg Tab 10 MG PO DAILY, TAB 0 Refills Tacrolimus (Prograf) 1 Mg Cap 2.5 MG PO BID for Prevent Transplant Reject, #60 CAP 0 Refills Jannet Miller MD Feb 17, 2017 11:28
--- NOTE | 2017-02-17 11:55 | HHI.PR ---
cc: Surendra Pineda MD Subjective Subjective Notes DAILY PROGRESS NOTE FOR SURGICAL ATTENDING, DR. SURENDRA PINEDA Resting in bed As walked hallways several times today Pain controlled Wants to go home today Objective Vitals/I&O Vital Signs Date Time Temp Pulse Resp B/P (MAP) Pulse Ox O2 Delivery O2 Flow Rate FiO2 02/17/17 08:57 92 Nasal Cannula 2.00 02/17/17 08:00 97.1 111 18 170/98 (122) Labs Laboratory Tests Test 02/17/17 07:11 White Blood Count 8.3 Red Blood Count 3.54 Hemoglobin 11.4 Hematocrit 32.2 Mean Corpuscular Volume 90.9 Mean Corpuscular Hemoglobin 32.2 Mean Corpuscular Hemoglobin Concent 35.4 Red Cell Distribution Width 12.6 Platelet Count 245 Mean Platelet Volume 7.8 Blood Urea Nitrogen 16 Creatinine 1.04 Random Glucose 121 Calcium Level 7.9 Sodium Level 135 Potassium Level 4.0 Chloride Level 103 Carbon Dioxide Level 20.3 Anion Gap 12 Estimat Glomerular Filtration Rate 72 Radiology Last Impressions Chest X-Ray 02/14/17 0000 Signed Impressions: Service Date/Time: Tuesday, February 14, 2017 15:14 - CONCLUSION: 1. No acute cardiopulmonary disease. Kadeem Gaxiola MD Abdomen/Pelvis CT 02/13/171910 Signed Impressions: Service Date/Time: Monday, February 13, 2017 20:43 - CONCLUSION: 1. Partially calcified gallstone in gallbladder neck with pericholecystic inflammatory changes most characteristic of cholecystitis. 2. Colonic diverticulosis without diverticulitis. Surendra Glass MD Abdomen X-Ray 02/13/171910 Signed Impressions: Service Date/Time: Monday, February 13, 2017 19:36 - CONCLUSION: 1. No acute findings. Surendra Glass MD Cardiovascular: Regular Lungs: Clear Abdomen: Other (lap sites c/d/i; TARA in place with SS drainage ) Extremities: No edema A/P Problem List: (1) Acute gangrenous cholecystitis ICD Codes: K81.0 - Acute cholecystitis (2) Lung transplant recipient ICD Codes: Z94.2 - Lung transplant status (3) HTN (hypertension) ICD Codes: I10 - Essential (primary) hypertension (4) Status post laparoscopic cholecystectomy ICD Codes: Z90.49 - Acquired absence of other specified parts of digestive tract Assessment and Plan 61 year old male POD1 lap chris; gangrenous cholecystitis -Tolerating regular diet -Pain controlled -Transitioned to PO antibiotics -Rx on chart -Follow up with Dr. Pineda Feb 24 at 2:50PM for TARA drain removal Discharge Planning For today Attending Statement NOTE FOR SURGICAL ATTENDING, DR. SURENDRA PINEDA I agree with above assessment and plan. The exam, history, and the medical decision-making described in the above note were completed with the assistance of the mid-level provider. I reviewed and agree with the findings presented. I attest that I had a [id number] encounter with the patient on the same day, and personally performed and documented my assessment and findings in the medical record. The following services were provided during this hospital visit: Chart data review, vital sign assessments/reviewing monitor data Review of consultations notes if present. Medication orders/review and/or management Ordering and/or reviewing lab tests Ordering and/or interpreting/reviewing x-rays and/or diagnostic studies Care of the patient and discussion of the patient with the care team Documentation time To help prompt me to consider important information that might be impacting today's encounter and assessment, information from prior notes written by myself or my colleagues may have been "brought forward/copy and pasted" into today's note. Comfort Kennedy Feb 17, 2017 11:55 Surendra Pineda MD Feb 18, 2017 07:55
[2017-02-17 12:00] VITALS: BP 170/100; PULSE 104; RESP 18; TEMP 97.4; O2SAT 93
[2017-02-17] MEDS: SODIUM CHLORIDE 0.9% FLUSH 10 ML FLUSH IV FLUSH SCH (13:24)
[2017-02-17 16:00] VITALS: BP 171/99; PULSE 101; RESP 18; TEMP 97.2; O2SAT 93
== END 2017-02-17 16:33 | disposition home or self-care (01) | DRG 418 ==
LOC: NEPD 18:36 → NEDA 21:41 → N07A 22:49
PROVIDERS: ADMIT Hospitalist; ATTEND Hospitalist
PROC: 0FT44ZZ Resection of Gallbladder, Percutaneous Endoscopic Approach (ICD-10-PCS; principal; 2017-02-16 18:04)
DX: K80.00 Calculus of gallbladder with acute cholecystitis without obstruction (principal); Q44.1 Other congenital malformations of gallbladder; Z94.2 Lung transplant status; E87.1 Hypo-osmolality and hyponatremia; I10 Essential (primary) hypertension; E03.9 Hypothyroidism, unspecified; E87.6 Hypokalemia; E78.5 Hyperlipidemia, unspecified; K57.30 Diverticulosis of large intestine without perforation or abscess without bleeding; Z23 Encounter for immunization
CPT/HCPCS: 71046; 74018; 74177; 80048; 80053; 81001; 82948; 83605; 83690; 85025; 85027; 85610; 85730; 88304; 90686; 93005; 96361; 96374; 96375; J0131; J1100; J1170; J2175; J2250; J2270; J2370; J2405; J2543; J2710; J3010; J7030; J7120; J7507; J7512; J7517; Q2038; Q9967